=== PATIENT | female | born 1995 | race Caucasian/White ===

== ENCOUNTER 2016-05-21 14:46 | Emergency (ER) | payer BC ==
[~2016-05-21] VITALS: Ht 157.5 cm; Wt 65.7 kg
[~2016-05-21 14:46] MED LIST: ATEN50TA PO; BACL10TA PO; BUSP10TA3 PO; CITA20TA9 PO; FAMO20TA8 PO; MEDR150D4 IM; ONDA4TAB7 PO; PROC-14 PO
--- OUTSIDE RECORDS SUMMARY | 2016-05-21 14:50 | XMS REPORT | Referral Summary ---
Author Author [facility], Family Medicine Organization [facility] Address Unknown Phone Unavailable Care Team Providers Care Linotype Operator Name Role Phone Lizzette Otto Primary Care Physician [phone] Encounter Date(s): 03/30/16 - 03/30/16 [facility], [address] [place] [address]- Discharge Diagnosis: Depression with anxiety Discharge Diagnosis: Relationship problems Discharge Disposition: 01-Home or Self Care Attending Physician: Fatmata Mcqueen APRN Admitting Physician: Fatmata Mcqueen APRN Vital Signs Most recent to 1 oldest [Reference Range]: Temperature Tympanic 36.9 degC [36.6-38.1 degC] (03/30/16 8:30 AM) Peripheral Pulse 83 bpm Rate [60-100 bpm] (03/30/16 8:30 AM) Respiratory Rate 17 br/min [14-20 br/min] (03/30/16 8:30 AM) Blood Pressure 110/60 mmHg [90-140/60-90 mmHg] (03/30/16 8:30 AM) SpO2 98 % (03/30/16 8:30 AM) Problem List Condition Effective Dates Status Health Status Informant Acute serous otitis Active media(Confirmed) Chronic Active fatigue(Confirmed) Chronic Active headaches(Confirmed) EBV Active infection(Confirmed) Contraceptive Active management(Confirmed ) Enlarged Active thyroid(Confirmed) Anxiety and Active depression(Confirmed ) TMJ Active syndrome(Confirmed) Allergies, Adverse Reactions, Alerts Substance Reaction Severity Status Benadryl Active Compazine TMJ locking Active [place] Active Phenergan Active Medications atenolol 50 mg oral tablet See Instructions, TAKE ONE TABLET BY MOUTH DAILY, # 30 tabs, 3 Refill(s), eRx: [facility] #[id number] Start Date: 02/29/16 Status: Ordered busPIRone 15 mg oral tablet See Instructions, TAKE ONE TABLET BY MOUTH THREE TIMES A DAY, # 90 tabs, 3 Refill(s), Pharmacy: [facility] #[id number], TAKE ONE TABLET BY MOUTH THREE TIMES A DAY Start Date: 02/29/16 Status: Ordered citalopram 40 mg oral tablet See Instructions, TAKE ONE TABLET BY MOUTH DAILY, # 30 tabs, eRx: [facility] #[id number] Start Date: 03/30/16 Status: Ordered cyclobenzaprine 10 mg oral tablet 10 mg 1 tabs, Oral, TID, as needed for spasm, X 10 days, # 30 tabs, 0 Refill(s) , Pharmacy: [id number], 1 tabs Oral TID,x10 days,PRN:as needed for spasm Start Date: 03/21/16 Stop Date: 03/31/16 Status: Ordered Depo-Provera Contraceptive 150 mg/mL intramuscular suspension 150 mg 1 mL, IntraMuscular, q3mo, # 1 mL, 0 Refill(s), other reason (Rx) Start Date: 02/16/15 Status: Ordered diflunisal 500 mg oral tablet 500 mg 1 tabs, Oral, BID, # 20 tabs, 0 Refill(s), Pharmacy: [facility], 1 tabs Oral BID,x10 days Start Date: 03/21/16 Stop Date: 03/31/16 Status: Ordered famotidine 20 mg oral tablet See Instructions, TAKE TWO TABLETS BY MOUTH ONCE DAILY, # 60 tabs, eRx: [facility] Start Date: 03/16/16 Status: Ordered 1 1 caps, Oral, Daily, 0 Refill(s) Start Date: 12/15/15 Status: Ordered Results No data available for this section Immunizations Given and Recorded Vaccine Date Status Refusal Reason tetanus/diphth/pertuss (Tdap) adult/adol 07/20/11 Recorded diphtheria/pertussis, acel/tetanus ped 10/02/01 Given diphtheria/pertussis, acel/tetanus ped 11/11/97 Given diphtheria/pertussis, acel/tetanus ped 96 Given diphtheria/pertussis, acel/tetanus ped 96 Given diphtheria/pertussis, acel/tetanus ped 96 Given haemophilus b conjugate (HbOC) vaccine 11/11/97 Given hepatitis B pediatric vaccine 11/11/97 Given hepatitis B pediatric vaccine 96 Given hepatitis B pediatric vaccine 96 Given human papillomavirus vaccine 06/27/13 Given human papillomavirus vaccine 02/24/13 Given human papillomavirus vaccine 01/02/13 Given measles/mumps/rubella virus vaccine 10/02/01 Given measles/mumps/rubella virus vaccine 11/11/97 Given meningococcal conjugate vaccine 09/08/14 Given poliovirus vaccine, inactivated 10/02/01 Given poliovirus vaccine, inactivated 96 Given poliovirus vaccine, inactivated 96 Given poliovirus vaccine, inactivated 96 Given Procedures Procedure Date Related Diagnosis Body Site Tonsillectomy [place] teeth extracted Social History Social History Type Response Smoking Status Never smoker Assessment and Plan Extracted from: Title: Office Visit Note Author: Fatmata Mcqueen APRN Date: 03/30/16 Assessment/Plan Depression with anxiety 50 minute visit [id number] in counseling. Primary issues are frustration withworkandperhaps some communication issues with her fellow employees. 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 She has been angry and upset. She has not done any physical exercise and she knows that that's very helpful to herin releasing some anxiety frustration and anger. She will begin adaily work out after workbefore she goes home. She's been taking out her angeronher mother and boyfriendwhich she agrees is unacceptable. No medication changes will be made at this visit. She willbeginmaking these changes in her life and recheck in 2 weeks,sooner if she has problems. Ordered: Office Visit Level 5 Est 22035 Relationship problems She cannot control her father's unpredictable and irresponsible behavior. She willmove forwardto make plans anddo family activities without involvingher father since he frequently disappoints the familyby not participating when he says he will. I recommended some reading material but she does not like reading,preferring instead to watch movies. I will see if there are anyapplicableinstructional DVDswhich would be helpful to her. Ordered: Office Visit Level 5 Est 51432
--- OUTSIDE RECORDS SUMMARY | 2016-05-21 14:50 | XMS REPORT | Referral Summary ---
Author Author [facility], Family Medicine Organization [facility] Family [facility] Address Unknown Phone Unavailable Care Team Providers Care Systems Applications Programming Lead Name Role Phone Lizzette Otto Primary Care Physician [phone] Encounter Date(s): 04/20/16 - 04/20/16 [facility], Family [address] [place] [address] Discharge Disposition: 01-Home or Self Care Attending Physician: Fatmata Mcqueen APRN Admitting Physician: Fatmata Mcqueen APRN Vital Signs Most recent to 1 oldest [Reference Range]: Temperature Tympanic 36.3 degC [36.6-38.1 degC] *LOW* (04/20/16 4:03 PM) Peripheral Pulse 75 bpm Rate [60-100 bpm] (04/20/16 4:03 PM) Blood Pressure 112/61 mmHg [90-140/60-90 mmHg] (04/20/16 4:03 PM) SpO2 98 % (04/20/16 4:03 PM) Problem List Condition Effective Dates Status Health Status Informant Acute serous otitis Active media(Confirmed) Chronic Active fatigue(Confirmed) Chronic Active headaches(Confirmed) EBV Active infection(Confirmed) Contraceptive Active management(Confirmed ) Enlarged Active thyroid(Confirmed) Anxiety and Active depression(Confirmed ) TMJ Active syndrome(Confirmed) Allergies, Adverse Reactions, Alerts Substance Reaction Severity Status Benadryl Active Compazine TMJ locking Active [place] Active Phenergan Active Medications atenolol 50 mg oral tablet See Instructions, TAKE ONE TABLET BY MOUTH DAILY, # 30 tabs, 3 Refill(s), Pharmacy: [id number], TAKE ONE TABLET BY MOUTH DAILY Start Date: 04/20/16 Status: Ordered busPIRone 15 mg oral tablet See Instructions, TAKE ONE TABLET BY MOUTH THREE TIMES A DAY, # 90 tabs, 3 Refill(s), Pharmacy: [facility], TAKE ONE TABLET BY MOUTH THREE TIMES A DAY Start Date: 04/20/16 Status: Ordered citalopram 20 mg oral tablet See Instructions, TAKE ONE AND ONE HALF TABLETS DAILY, # 45 tabs, 3 Refill(s), Pharmacy: [facility], TAKE ONE AND ONE HALF TABLETS DAILY Start Date: 04/20/16 Status: Ordered Depo-Provera Contraceptive 150 mg/mL intramuscular suspension 150 mg 1 mL, IntraMuscular, q3mo, # 1 mL, 0 Refill(s), other reason (Rx) Start Date: 02/16/15 Status: Ordered diflunisal 500 mg oral tablet 500 mg 1 tabs, Oral, BID, # 20 tabs, 0 Refill(s), Pharmacy: [facility] [address], 1 tabs Oral BID,x10 days Start Date: 03/21/16 Stop Date: 03/31/16 Status: Ordered famotidine 20 mg oral tablet See Instructions, TAKE TWO TABLETS BY MOUTH ONCE DAILY, # 60 tabs, 3 Refill(s), Pharmacy: [facility] [address], TAKE TWO TABLETS BY MOUTH ONCE DAILY Start Date: 04/20/16 Status: Ordered 1 1 caps, Oral, Daily, 0 Refill(s) Start Date: 12/15/15 Status: Ordered Tri-Sprintec oral tablet 1 tabs, Oral, Daily, Refills from 04/20/16 thru 04/20/2017, # 28 tabs, 11 Refill(s ), Pharmacy: [facility] [address] Start Date: 04/20/16 Status: Ordered Results No data available for [...] Procedure Date Related Diagnosis Body Site Tonsillectomy [place] teeth extracted Social History Social History Type Response Smoking Status Never smoker Assessment and Plan No data available for this section
--- OUTSIDE RECORDS SUMMARY | 2016-05-21 14:50 | XMS REPORT | Continuity of Care Document ---
Author Author [facility] Organization [facility] Address Unknown Phone Unavailable Allergies Medications Problems Procedures Results Test Result Range HEP B SURF AB (EMP) - 12/27/15 13:52 HEP B SURFACE AB (EMP) <3.1 Immunity> 9.9 VARICELLA ZOSTER IGG PRE EMP - 12/27/15 13:52 VARICELLA ZOSTER IGG PRE EMP 1186 Immune >165 Encounters ACCT No. Visit Date/Time Discharge Status Pt. Type Provider Facility Loc./Unit Complaint [id number] 05/17/2013 11:21:00 05/17/2013 23 :59:59 CLS Outpatient [id number] 05/09/2013 16:00:00 05/09/2013 23 :59:59 CLS Outpatient [id number] 04/25/2013 15:54:00 04/25/2013 23 :59:59 CLS Outpatient [id number] 04/21/2013 10:50:00 04/21/2013 23 :59:59 CLS Outpatient [id number] 04/11/2013 09:36:00 04/11/2013 23 :59:59 CLS Outpatient [id number] 03/20/2013 16:14:00 03/20/2013 23 :59:59 CLS Outpatient
--- OUTSIDE RECORDS SUMMARY | 2016-05-21 14:51 | XMS REPORT | Referral Summary ---
Author Author [facility], Family Medicine Organization [facility] Family [facility] Address Unknown Phone Unavailable Care Team Providers Care Claims Adjuster Supervisor Name Role Phone Lizzette Otto Primary Care Physician [phone] Encounter Date(s): 12/30/15 - 12/30/15 [facility] [address] [place] [address] Discharge Diagnosis: Acute lower UTI Discharge Disposition: 01-Home or Self Care Attending Physician: Gretchen Schroeder PA-C Admitting Physician: Gretchen Schroeder PA-C Vital Signs Most recent to 1 oldest [Reference Range]: Temperature Tympanic 36.4 degC [36.6-38.1 degC] *LOW* (12/30/15 2:52 PM) Peripheral Pulse 64 bpm Rate [60-100 bpm] (12/30/15 2:52 PM) Respiratory Rate 18 br/min [14-20 br/min] (12/30/15 2:52 PM) Blood Pressure 115/78 mmHg [90-140/60-90 mmHg] (12/30/15 2:52 PM) SpO2 97 % (12/30/15 2:52 PM) Problem List Condition Effective Dates Status Health Status Informant Acute serous otitis Active media(Confirmed) Chronic Active fatigue(Confirmed) Chronic Active headaches(Confirmed) EBV Active infection(Confirmed) Contraceptive Active management(Confirmed ) Enlarged Active thyroid(Confirmed) Anxiety and Active depression(Confirmed ) TMJ Active syndrome(Confirmed) Allergies, Adverse Reactions, Alerts Substance Reaction Severity Status Benadryl Active Compazine TMJ locking Active [place] Active Phenergan Active Medications atenolol 50 mg oral tablet See Instructions, TAKE ONE TABLET BY MOUTH DAILY DUE FOR APPOINTMENT, # 30 tabs, eRx: [facility] #[id number], TAKE ONE TABLET BY MOUTH DAILY DUE FOR APPOINTMENT Start Date: 12/22/15 Status: Ordered atenolol 50 mg oral tablet See Instructions, TAKE ONE TABLET BY MOUTH DAILY, # 30 tabs, 0 Refill(s), Pharmacy: [facility] #[id number], NEEDS APPT WITH DR. OTTO FOR FURTHER REFILLS, TAKE ONE TABLET BY MOUTH DAILY Start Date: 11/09/15 Status: Ordered Bactrim DS 800 mg-160 mg oral tablet 1 tabs, Oral, BID, X 7 days, # 14 tabs, 0 Refill(s), Pharmacy: [facility] #[id number] Start Date: 12/30/15 Stop Date: 01/06/16 Status: Ordered busPIRone 15 mg oral tablet See Instructions, TAKE ONE TABLET BY MOUTH THREE TIMES A DAY MUST CALL MD FOR APPOINTMENT, # 30 tabs, eRx: [facility] #[id number], TAKE ONE TABLET BY MOUTH THREE TIMES A DAY MUST CALL MD FOR APPOINTMENT Start Date: 12/23/15 Status: Ordered citalopram 40 mg oral tablet 40 mg 1 tabs, Oral, Daily, # 30 tabs, 0 Refill(s), Pharmacy: [facility] # [id number], 1 tabs Oral Daily Start Date: 12/21/15 Status: Ordered Depo-Provera Contraceptive 150 mg/mL intramuscular suspension 150 mg 1 mL, IntraMuscular, q3mo, # 1 mL, 0 Refill(s), other reason (Rx) Start Date: 02/16/15 Status: Ordered famotidine 20 mg oral tablet 40 mg 2 tabs, Oral, Daily, 0 Refill(s) Start Date: 12/01/15 Status: Ordered 1 1 caps, Oral, Daily, 0 Refill(s) Start Date: 12/15/15 Status: Ordered Wellbutrin XL 150 mg/24 hours oral tablet, extended release 150 mg 1 tabs, Oral, q24hr, # 30 tabs, 1 Refill(s), Pharmacy: [facility] # [id number], 1 tabs Oral q24hr Start Date: 12/15/15 Status: Ordered Results Urinalysis Most recent to 1 oldest [Reference Range]: UA Color [place] *ABN* (12/30/15 2:55 PM) UA Appear Clear (12/30/15 2:55 PM) UA pH [5.0-8.0] 6.5 (12/30/15 2:55 PM) UA Leuk Est Negative [Negative] (12/30/15 2:55 PM) UA Nitrite - 1 [Negative] (12/30/15 2:55 PM) UA Protein - 2 [Negative] (12/30/15 2:55 PM) UA Glucose - 3 [Negative] (12/30/15 2:55 PM) UA Ketones - 4 [Negative] (12/30/15 2:55 PM) UA Urobilinogen - 5 [<=1.0] (12/30/15 2:55 PM) UA Bili [Negative] Negative (12/30/15 2:55 PM) UA Blood [Negative] Negative (12/30/15 2:55 PM) UA Spec Grav 1.020 [1.003-1.030] (12/30/15 2:55 PM) Type Cl Catch (12/30/15 2:55 PM) UA WBC [0-4] 20-50 *ABN* (12/30/15 2:55 PM) UA RBC [0-2] 5-10 *ABN* (12/30/15 2:55 PM) Epithelial Cells 0-2 (12/30/15 2:55 PM) UA Bacteria Moderate *ABN* (12/30/15 2:55 PM) UA Mucous Present (12/30/15 2:55 PM) 1Result Comment: This component of the urinalysis cannot be performed due to the presence of dye stain which interferes with the testing procedure. 2Result Comment: This component of the urinalysis cannot be performed due to the presence of dye stain which interferes with the testing procedure. 3Result Comment: This component of the urinalysis cannot be performed due to the presence of dye stain which interferes with the testing procedure. 4Result Comment: This component of the urinalysis cannot be performed due to the presence of dye stain which interferes with the testing procedure. 5Result Comment: This component of the urinalysis cannot be performed due to the presence of dye stain which interferes with the testing procedure. Immunizations Vaccine Date Refusal Reason tetanus/diphth/pertuss (Tdap) adult/adol 07/20/11 diphtheria/pertussis, acel/tetanus ped 10/02/01 diphtheria/pertussis, acel/tetanus ped 11/11/97 diphtheria/pertussis, acel/tetanus ped 96 diphtheria/pertussis, acel/tetanus ped 96 diphtheria/pertussis, acel/tetanus ped 96 haemophilus b conjugate (HbOC) vaccine 11/11/97 hepatitis B pediatric vaccine 11/11/97 hepatitis B pediatric vaccine 96 hepatitis B pediatric vaccine 96 human papillomavirus vaccine 06/27/13 human papillomavirus vaccine 02/24/13 human papillomavirus vaccine 01/02/13 measles/mumps/rubella virus vaccine 10/02/01 measles/mumps/rubella virus vaccine 11/11/97 meningococcal conjugate vaccine 09/08/14 poliovirus vaccine, inactivated 10/02/01 poliovirus vaccine, inactivated 96 poliovirus vaccine, inactivated 96 poliovirus vaccine, inactivated 96 Procedures Procedure Date Related Diagnosis Body Site Tonsillectomy [place] teeth extracted Social History Social History Type Response Smoking Status Never smoker Assessment and Plan Extracted from: Title: Office Visit Note- UTI Author: Gretchen Schroeder PA-C Date: 12/29 Assessment/Plan Acute lower UTI Dipstick was unreadable d/t orange color from AZO. The microscopy showed WBC's. Will treat with Bactrim x 1 week. Pt advised to push fluids. Stop AZO for now. RTC if not improving. Ordered: sulfamethoxazole-trimethoprim, 1 tabs, Oral, BID, X 7 days, # 14 tabs, 0 Refill (s), Pharmacy: [facility] #[id number] Office Visit Level 3 Est 59372 Urination frequency See UTI above. Ordered: Office Visit Level 3 Est 90934
--- OUTSIDE RECORDS SUMMARY | 2016-05-21 14:51 | XMS REPORT | Referral Summary ---
Author Author [facility], Family Medicine Organization [facility] Address Unknown Phone Unavailable Care Team Providers Care Paid Search Marketing Analyst Name Role Phone Lizzette Otto Primary Care Physician [phone] Encounter VC Date(s): 11/29/15 - 11/29/15 [facility] [address] [place] [address] Discharge Diagnosis: Nausea without vomiting Discharge Diagnosis: Diffuse abdominal pain Discharge Diagnosis: Constipation Discharge Disposition: 01-Home or Self Care Attending Physician: Gretchen Schroeder PA-C Admitting Physician: Gretchen Schroeder PA-C Vital Signs Most recent to 1 oldest [Reference Range]: Temperature Tympanic 37 degC [36.6-38.1 degC] (11/29/15 10:52 AM) Peripheral Pulse 68 bpm Rate [60-100 bpm] (11/29/15 10:52 AM) Respiratory Rate 16 br/min [14-20 br/min] (11/29/15 10:52 AM) Blood Pressure 108/62 mmHg [90-140/60-90 mmHg] (11/29/15 10:52 AM) SpO2 98 % (11/29/15 10:52 AM) Problem List Condition Effective Dates Status Health Status Informant Acute serous otitis Active media(Confirmed) Chronic Active fatigue(Confirmed) Chronic Active headaches(Confirmed) EBV Active infection(Confirmed) Contraceptive Active management(Confirmed ) Enlarged Active thyroid(Confirmed) Anxiety and Active depression(Confirmed ) TMJ Active syndrome(Confirmed) Allergies, Adverse Reactions, Alerts Substance Reaction Severity Status Benadryl Active [place] Active Phenergan Active Medications atenolol 50 mg oral tablet See Instructions, TAKE ONE TABLET BY MOUTH DAILY, # 30 tabs, 0 Refill(s), Pharmacy: [facility] #[id number], NEEDS APPT WITH DR. OTTO FOR FURTHER REFILLS, TAKE ONE TABLET BY MOUTH DAILY Start Date: 11/09/15 Status: Ordered busPIRone 15 mg oral tablet See Instructions, TAKE ONE TABLET BY MOUTH THREE TIMES A DAY Pt needs med check with PCP, # 30 tabs, 0 Refill(s), Pharmacy: [facility] #[id number], TAKE ONE TABLET BY MOUTH THREE TIMES A DAY; Pt needs med check with PCP Start Date: 11/22/15 Status: Ordered citalopram 20 mg oral tablet See Instructions, TAKE ONE AND ONE HALF TABLETS BY MOUTH ONCE DAILY, # 45 tabs, 3 Refill(s), eRx: [facility] #[id number], TAKE ONE AND ONE HALF TABLETS BY MOUTH ONCE DAILY Start Date: 06/11/15 Status: Ordered citalopram 20 mg oral tablet See Instructions, TAKE ONE AND ONE HALF TABLETS BY MOUTH ONCE DAILY, # 45 tabs, 2 Refill(s), Pharmacy: [facility] #[id number], TAKE ONE AND ONE HALF TABLETS BY MOUTH ONCE DAILY Start Date: 11/08/15 Status: Ordered clotrimazole-betamethasone 1%-0.05% topical cream 1 migel, Topical, BID, 0 Refill(s) Start Date: 10/04/15 Status: Ordered Depo-Provera Contraceptive 150 mg/mL intramuscular suspension 150 mg 1 mL, IntraMuscular, q3mo, # 1 mL, 0 Refill(s), other reason (Rx) Start Date: 02/16/15 Status: Ordered Zofran ODT 8 mg oral tablet, disintegrating 8 mg 1 tabs, Oral, q8hr, as needed for nausea/vomiting, # 10 tabs, 0 Refill(s), Pharmacy: [facility] #[id number], 1 tabs Oral q8hr,PRN:as needed for nausea/ vomiting Start Date: 06/22/15 Status: Ordered Results No data available for this section Immunizations Vaccine Date Refusal Reason tetanus/diphth/pertuss (Tdap) [...] Procedure Date Related Diagnosis Body Site Tonsillectomy [place] teeth extracted Social History Social History Type Response Smoking Status Never smoker Assessment and Plan Extracted from: Title: Office Visit Note- ED f/u, Author: Gretchen Schroeder PA-C Date: 11/29/15 abd pain Assessment/Plan Constipation I spent about 25 minutes discussing with the pt about the labs and x-ray from her EDvisit. I do think kelsea would benefit from taking a laxative ratherthan a stool softener. I discussed with her how these medication differ. She refuses to take a laxative. She states "I know what those do to people", and when asked to clarify, she states "it gives you diarrhea, which is worse than my pain now".I recommended that she could try Miralax, but this will take several days to have good effects. Since she apparently wants this resolved now, I recommended that she take Magnesium Citrate. She refuses. She "has tried everything" already.D/w her to make sure she is drinking plenty of fluids, as her UA showed that she was a little dry. Ordered: Office Visit Level 4 Est 82873 Diffuse abdominal pain She demands a CTtoday. I d/w her that I would rather her first try a laxative to empty out hercolon to see if this helps. She tells me that she doesn't want to, and that she wouldrather know what's going on and do a CT. I refused CT today. I asked her what she thought a CT would show us, and she immediately started crying and stated "I don't know, I just want the pain to go away". D/w her that it is not her appendix sinceher WBC is normal, she is eating normally, and she has no pain to McBurney's point. She has no signs of an acute abdomen. D/w her that a CT will expose her to a lot of unnecessary radiation, and I"m not willing to put her through that at this time. I think most of her abdominal pain is d/t her constipation, and also psychological. Again, advised trying a laxative. I also offered to provide a work note, but she states "I have to work the next 6 days", and declined a note. I d/w her that if she wants, she can try the laxative, and let us know if her pain is not better after a few days of having a decent BM. D/w her that laxatives can cause some cramping afterwards, which would be normal. Ordered: Office Visit Level 4 Est 93649 Nausea without vomiting Has Zofran from ED, however, I did d/w pt that this can cause worsening constipation as well.She is eating fine. Continue with bland diet for now. Ordered: Office Visit Level 4 Est 21858
--- OUTSIDE RECORDS SUMMARY | 2016-05-21 14:51 | XMS REPORT | Continuity of Care Document ---
Author Author [facility] Organization [facility] Address Unknown Phone Unavailable Support Name Relationship Address Phone MACO TEMPLE MD Caregiver [address] [place] [address] Unavailable RICARDO HINOJOSA MD Caregiver [address] [place] [address] Unavailable DAIANA HAMILTON Next Of Kin [place], [place] [id number] Insurance Providers Guarantor Rehana Hamilton Address [address] [place] [address] Email DENIED/NO TO PT PORTAL Payer [facility] Policy Number [id number] Subscriber's Name Rehana Relationship 18 Self Group Number [id number] Chief Complaint and Reason for Visit Chief Complaint General Reason for Visit Muscle spasms of neck Problems Active Problems Medical Problem Onset Date Status GERD (gastroesophageal reflux disease) Unknown Acute Migraine equivalent Unknown Acute UTI (urinary tract infection) Unknown Acute Past Problems Medical Problem Onset Date Abdominal pain Unknown Constipation Unknown Epigastric abdominal pain Unknown Gastritis Unknown Mesenteric adenitis Unknown Migraine headache Unknown Muscle spasms of neck Unknown Right upper quadrant abdominal pain Unknown Yeast infection involving the vagina and surrounding area Unknown Medications Current Home Medications Medication Dose Units Route Directions Days Qty Instructions Start Date Atenolol 50 Mg Tablet 50 Mg Oral Daily 11/27/15 Baclofen 10 Mg Tablet 1 Tab Oral Three Times A Day 10 Days 30 Tablet 12/02/15 Buspirone Hcl 10 Mg Tablet 15 Mg Oral Three Times A Day 09/03/15 Citalopram Hydrobromide (Citalopram Hbr) 20 Mg Tablet 30 Mg Oral Daily 01/11/15 Famotidine 20 Mg Tablet 20 Mg Oral Daily 12/02/15 Medroxyprogesterone Acet (Depo-Provera) 150 Mg/Ml Disp.syrin 1 Dose Intramusc [id number] 12/28/11 Ondansetron (Zofran Odt) 4 Mg Tab.rapdis 4 Mg Oral Q6h/0300,0900,1500,2100 for Nausea 5 Tablet Oral disintegrating tablet 11/27/15 Prochlorperazine Maleate (Compazine) 10 Mg Tablet 10 Mg Oral Four Times Daily 30 Tablet 11/30/15 Past Home Medications Medication Directions Ordered Status Loratadine (Alavert) 10 Mg Tablet, 10 Mg Oral Daily 01/02/10 Discontinued Social History Social History Problem Response Recorded Date/Time Onset Date Status Hx Substance Use No 12/02/2015 8:28pm Not Applicable Not Applicable Hx Alcohol Use No 12/02/2015 8:28pm Not Applicable Not Applicable Has the pt used tobacco in the last 12 months No 06/18/2015 9:27am Not Applicable Not Applicable Tobacco Usage none 09/13/2014 3:59pm Not Applicable Not Applicable Query Response Start Date Stop Date Smoking Status Never smoker Hospital Discharge Instructions No hospital discharge instructions. Plan of Care Discharge Date 12/02/15 8:25pm Disposition 01 DISCHARGED HOME, SELF-CARE Condition at Discharge Improved Instructions/Education Provided DI for Muscle Spasm Prescriptions See Medication Section Referrals MACO TEMPLE MD Order Date: 1 Week Address: [address] [place] [address] [place] [phone] Note: Additional Instructions/Education Take the baclofen as prescribed to help with your symptoms. Follow up with your doctor in 7-10 days. Care Plan and Goals Physician Care Plan Problem: Neck muscle spasm Goal: Follow up with primary care provider Instructions: Take medications and follow care plan as discussed/written Functional Status No functional status results. Allergies, Adverse Reactions, Alerts Allergen Type Severity Reaction Status Last Updated Hydrocodone Allergy Unknown Active 12/02/15 Promethazine Allergy Unknown Active 12/02/15 Diphenhydramine Adverse Reaction Unknown HALLUCINATIONS Active 12/02/15 Immunizations Query Response on File Recorded Date/Time Hx Influenza Vaccination No 06/18/15 9:27am Hx Pneumococcal Vaccination No 06/18/15 9:27am Hx Influenza Vaccination No 06/18/15 9:27am Influenza Vaccine Hx CURRENT PER PT STATEMENT 12/02/15 8:28pm Vital Signs Acute Vital Signs Vital Response Date/Time Temperature (Fahrenheit) 98.0 deg F (96.8 - 99.1) 12/02/2015 8:25pm Temperature (Calculated Celsius) 36.02054 degrees C (36.0 - 37.3) 12/02/2015 8:25pm Pulse Rate (adult) 80 bpm (60 - 100) 12/02/2015 8:25pm Respiratory Rate 16 breaths/min (10 - 20) 12/02/2015 8:25pm O2 Sat by Pulse Oximetry 98 % (90 - 100) 12/02/2015 8:25pm Blood Pressure 125/65 mm Hg 12/02/2015 8:25pm Blood Pressure 125/65 mm Hg 12/02/2015 8:25pm Height (Feet) 5 feet 12/02/2015 5:44pm Height (Inches) 3.00 inches 12/02/2015 5:44pm Weight (Kilograms) 63.630 kg 12/02/2015 5:44pm Body Mass Index (BMI) 24.0 12/02/2015 5:44pm Results Laboratory Results Test Name Result Units Flags Reference Collection Date/Time Result Date/ Time Comments Urine WBC 1-3 /HPF 0-5 09/03/2015 8:55pm 09/03/2015 9:06pm Urine RBC 0-1 /HPF 0-3 09/03/2015 8:55pm 09/03/2015 9:06pm Urine Squamous Epithelial Cells 0-5 09/03/2015 8:55pm 09/03/2015 9: 06pm Urine Bacteria TRACE H NEGATIVE 09/03/2015 8:55pm 09/03/2015 9:06pm Urine Culture Indicated CULT NOT INDICATED 09/03/2015 8:55pm 2015 9:06pm N. gonorrhoeae DNA Specimen Source CERVICAL/VAGINAL 10/03/2015 6: 46am 10/03/2015 8:53am White Blood Count 6.7 T/MM3 4.5-11.0 11/27/2015 4:41pm 11/27/2015 4: 46pm Red Blood Count 4.88 M/MM3 4.00-5.20 11/27/2015 4:41pm 11/27/2015 4: 46pm Hemoglobin 14.6 GM/DL 12-16 11/27/2015 4:41pm 11/27/2015 4:46pm Hematocrit 42.0 % 36-46 11/27/2015 4:41pm 11/27/2015 4:46pm Mean Corpuscular Volume 86.1 UM3 80-100 11/27/2015 4:41pm 11/27/2015 4: 46pm Mean Corpuscular Hemoglobin 29.9 UUG 26-34 11/27/2015 4:41pm 2015 4:46pm Mean Corpuscular Hemoglobin Concent 34.8 GM/DL 31-37 11/27/2015 4:41pm 11/27/2015 4:46pm RDW Standard Deviation 37.4 FL 36.9-50.2 11/27/2015 4:41pm 11/27/2015 4 :46pm Platelet Count 243 T/MM3 130-400 11/27/2015 4:41pm 11/27/2015 4:46pm Mean Platelet Volume 9.7 UM3 9.4-12.4 11/27/2015 4:41pm 11/27/2015 4: 46pm Neutrophils (%) (Auto) 55.5 % 33-66 11/27/2015 4:41pm 11/27/2015 4: 46pm Lymphocytes (%) (Auto) 33.0 % 23-45 11/27/2015 4:41pm 11/27/2015 4: 46pm Monocytes (%) (Auto) 9.6 % H 0-9.0 11/27/2015 4:41pm 11/27/2015 4:46pm Eosinophils (%) (Auto) 1.1 % 0-4 11/27/2015 4:41pm 11/27/2015 4:46pm Basophils (%) (Auto) 0.6 % 0-2 11/27/2015 4:41pm 11/27/2015 4:46pm Immature Granulocyte % (Auto) 0.2 % 0.0-0.5 11/27/2015 4:41pm 2015 4:46pm Absolute Neutrophils (auto) 3.7 T/MM3 1.8-7.7 11/27/2015 4:41pm 2015 4:46pm Absolute Lymphocytes (auto) 2.2 T/MM3 1-4.8 11/27/2015 4:41pm 2015 4:46pm Absolute Monocytes (auto) 0.6 T/MM3 0-0.8 11/27/2015 4:41pm 11/27/2015 4:46pm Absolute Eosinophils (auto) 0.1 T/MM3 0-0.5 11/27/2015 4:41pm 2015 4:46pm Absolute Basophils (auto) 0.0 T/MM3 0-0.2 11/27/2015 4:41pm 11/27/2015 4:46pm Absolute Immature Granulocyte (auto 0.01 T/MM3 0.00-0.03 11/27/2015 4: 41pm 11/27/2015 4:46pm Icterus Index < 2 0-7 11/27/2015 4:41pm 11/27/2015 4:57pm Chemistry Specimen Hemolysis < 15 0-25 11/27/2015 4:41pm 11/27/2015 4 :57pm 0-25: Specimen Exhibited No Hemolysis. Turbidity < 20 0-20 11/27/2015 4:41pm 11/27/2015 4:57pm Sodium Level 141 MEQ/L 134-144 11/27/2015 4:41pm 11/27/2015 4:57pm Potassium Level 4.1 MEQ/L 3.6-5 11/27/2015 4:41pm 11/27/2015 4:57pm Chloride Level 106 MEQ/L 98-107 11/27/2015 4:41pm 11/27/2015 4:57pm Carbon Dioxide Level 26 MEQ/L 22-30 11/27/2015 4:41pm 11/27/2015 4: 57pm Anion Gap 9 MEQ/L 5-15 11/27/2015 4:41pm 11/27/2015 4:57pm Blood Urea Nitrogen 14.0 MG/DL 7-17 11/27/2015 4:41pm 11/27/2015 4: 57pm Creatinine 0.9 MG/DL 0.7-1.2 11/27/2015 4:41pm 11/27/2015 4:57pm BUN/Creatinine Ratio 16 RATIO 6-26 11/27/2015 4:41pm 11/27/2015 4:57pm Glomerular Filtration Rate Calc 81 11/27/2015 4:41pm 11/27/2015 4: 57pm Glucose Level 93 MG/DL 65-110 11/27/2015 4:41pm 11/27/2015 4:57pm Calculated Osmolality 272 MOSM/KG 261-280 11/27/2015 4:41pm 11/27/2015 4:57pm Calcium Level 9.6 MG/DL 8.4-10.2 11/27/2015 4:41pm 11/27/2015 4:57pm Total Bilirubin 0.60 MG/DL 0.20-1.30 11/27/2015 4:41pm 11/27/2015 4: 57pm Alkaline Phosphatase 48 U/L 38-126 11/27/2015 4:41pm 11/27/2015 4:57pm Total Protein 7.6 G/DL 6.3-8.2 11/27/2015 4:41pm 11/27/2015 4:57pm Albumin 4.3 G/DL 3.5-5.0 11/27/2015 4:41pm 11/27/2015 4:57pm Globulin 3.3 G/DL 2.4-3.6 11/27/2015 4:41pm 11/27/2015 4:57pm Albumin/Globulin Ratio 1.3 RATIO 1.1-2.2 11/27/2015 4:41pm 11/27/2015 4 :57pm Aspartate Amino Transf (AST/SGOT) 23 U/L 14-36 11/27/2015 4:41pm 2015 4:57pm Alanine Aminotransferase (ALT/SGPT) 40 U/L 9-52 11/27/2015 4:41pm 11/26 4:57pm Lipase 66 U/L 23-300 11/27/2015 4:41pm 11/27/2015 4:57pm Urine Collection Type CLEANCATCH-MIDSTREAM 11/27/2015 4:10pm 2015 4:17pm Urine Color YELLOW YELLOW 11/27/2015 4:10pm 11/27/2015 4:17pm Urine Turbidity CLEAR CLEAR 11/27/2015 4:10pm 11/27/2015 4:17pm Urine Specific [place] >=1.030 H 1.015-1.025 11/27/2015 4:10pm 2015 4:17pm Urine pH 6.0 5.0-8.0 11/27/2015 4:10pm 11/27/2015 4:17pm Urine Leukocyte Esterase NEGATIVE NEGATIVE 11/27/2015 4:10pm 2015 4:17pm Urine Nitrite NEGATIVE NEGATIVE 11/27/2015 4:10pm 11/27/2015 4:17pm Urine Protein NEGATIVE NEGATIVE 11/27/2015 4:10pm 11/27/2015 4:17pm Urine Glucose (UA) NEGATIVE NEGATIVE 11/27/2015 4:10pm 11/27/2015 4: 17pm Urine Ketones NEGATIVE NEGATIVE 11/27/2015 4:10pm 11/27/2015 4:17pm Urine Urobilinogen 0.2 EU/DL NORMAL 11/27/2015 4:10pm 11/27/2015 4: 17pm Urine Bilirubin NEGATIVE NEGATIVE 11/27/2015 4:10pm 11/27/2015 4: 17pm Urine Blood TRACE-INTACT A NEGATIVE 11/27/2015 4:10pm 11/27/2015 4: 17pm Urinalysis Comment MICROSCOPIC NOT IND. 11/27/2015 4:10pm 2015 4:17pm Procedures Procedure Status Date Provider(s) CT ABD & PELVIS W/O CONTRAST Completed 09/03/15 METABOLIC PANEL TOTAL CA Completed 09/03/15 URINALYSIS AUTO W/SCOPE Completed 09/03/15 URINE TEST Completed 09/03/15 COMPLETE CBC W/AUTO DIFF WBC Completed 09/03/15 HYDRATE IV INFUSION ADD-ON Completed 09/03/15 HYDRATE IV INFUSION ADD-ON Completed 09/03/15 THER/PROPH/DIAG INJ IV PUSH Completed 09/03/15 EMERGENCY DEPT VISIT Completed 09/03/15 227256"INJECTION, KETOROLAC TROMETHAMINE, PER 15 MG" Completed 09/03/15 193799"INFUSION, NORMAL SALINE SOLUTION , 1000 CC" Completed 09/03/15 URINALYSIS AUTO W/O SCOPE Completed 10/03/15 URINE TEST Completed 10/03/15 CULTURE OTHR SPECIMN AEROBIC Completed 10/03/15 SMEAR GRAM STAIN Completed 10/03/15 SMEAR WET [place] SALINE/INK Completed 10/03/15 TISSUE EXAM FOR FUNGI Completed 10/03/15 CHYLMD TRACH DNA AMP PROBE Completed 10/03/15 N.GONORRHOEAE DNA AMP PROB Completed 10/03/15 EMERGENCY DEPT VISIT Completed 10/03/15 ROUTINE VENIPUNCTURE Completed 11/27/15 X-RAY EXAM OF ABDOMEN Completed 11/27/15 COMPREHEN METABOLIC PANEL Completed 11/27/15 URINALYSIS AUTO W/O SCOPE Completed 11/27/15 URINE TEST Completed 11/27/15 ASSAY OF LIPASE Completed 11/27/15 COMPLETE CBC W/AUTO DIFF WBC Completed 11/27/15 HYDRATE IV INFUSION ADD-ON Completed 11/27/15 THER/PROPH/DIAG INJ IV PUSH Completed 11/27/15 TX/PRO/DX INJ NEW DRUG ADDON Completed 11/27/15 TX/PRO/DX INJ NEW DRUG ADDON Completed 11/27/15 EMERGENCY DEPT VISIT Completed 11/27/15 246408"INJECTION, HYDROMORPHONE, UP TO 4 MG" Completed 11/27/15 250411"INJECTION, ONDANSETRON HYDROCHLORIDE, PER 1 MG" Completed 11/27/15333968"INJECTION, FENTANYL CITRATE, 0.1 MG" Completed 11/27/15695940"INFUSION, NORMAL SALINE SOLUTION , 1000 CC" Completed 11/27/15 Compound Drug, Not Otherwise Classified Completed 11/27/15 Encounters Encounter Location Arrival/Admit Date Discharge/Depart Date Attending Provider Departed Emergency Room [facility] 12/02/15 5:04pm 12/02/15 8: 25pm RICARDO HINOJOSA MD Departed Emergency Room [facility] 11/30/15 5:57pm 11/30/15 8: 30pm SHWETA GONZALES MD Departed Emergency Room [facility] 11/27/15 3:33pm 11/27/15 6: 28pm CRISTINO ASENCIO MD Departed Emergency Room [facility] 10/03/15 6:08am 10/03/15 7: 50am CRISTINO ASENCIO MD Departed Emergency Room [facility] 09/03/15 8:14pm 09/03/15 11: 06pm SHWETA GONZALES MD Recent Diagnosis
--- OUTSIDE RECORDS SUMMARY | 2016-05-21 14:51 | XMS REPORT | Referral Summary ---
Author Author [facility] Organization [facility] Address Unknown Phone Unavailable Care Team Providers Care Web Programmer Name Role Phone Lizzette Otto Primary Care Physician [phone] Encounter Date(s): 01/27/16 - 01/27/16 [facility], [address] [place] [address]- Discharge Diagnosis: Common cold Discharge Diagnosis: Encounter for contraceptive management Discharge Disposition: 01-Home or Self Care Attending Physician: Fatmata Mcqueen APRN Admitting Physician: Fatmata Mcqueen APRN Vital Signs Most recent to 1 oldest [Reference Range]: Temperature Tympanic 37.5 degC [36.6-38.1 degC] (01/27/16 1:50 PM) Peripheral Pulse 112 bpm Rate [60-100 bpm] *HI* (01/27/16 1:50 PM) Blood Pressure 115/62 mmHg [90-140/60-90 mmHg] (01/27/16 1:50 PM) SpO2 96 % (01/27/16 1:50 PM) Problem List Condition Effective Dates Status Health Status Informant Acute serous otitis Active media(Confirmed) Chronic Active fatigue(Confirmed) Chronic Active headaches(Confirmed) EBV Active infection(Confirmed) Contraceptive Active management(Confirmed ) Enlarged Active thyroid(Confirmed) Anxiety and Active depression(Confirmed ) TMJ Active syndrome(Confirmed) Allergies, Adverse Reactions, Alerts Substance Reaction Severity Status Benadryl Active Compazine TMJ locking Active [place] Active Phenergan Active Medications atenolol 50 mg oral tablet See Instructions, TAKE ONE TABLET BY MOUTH DAILY DUE FOR APPOINTMENT, # 30 tabs, eRx: [facility] #[id number], TAKE ONE TABLET BY MOUTH DAILY DUE FOR APPOINTMENT Start Date: 12/22/15 Status: Ordered busPIRone 15 mg oral tablet 15 mg 1 tabs, Oral, TID, # 90 tabs, 0 Refill(s), Pharmacy: [facility] # [id number], 1 tabs Oral TID Start Date: 12/31/15 Status: Ordered citalopram 40 mg oral tablet 40 mg 1 tabs, Oral, Daily, # 30 tabs, 0 Refill(s), Pharmacy: [facility] # [id number], 1 tabs Oral Daily Start Date: 12/21/15 Status: Ordered Depo-Provera Contraceptive 150 mg/mL intramuscular suspension 150 mg 1 mL, IntraMuscular, q3mo, # 1 mL, 0 Refill(s), other reason (Rx) Start Date: 02/16/15 Status: Ordered famotidine 20 mg oral tablet 40 mg 2 tabs, Oral, Daily, # 60 tabs, 1 Refill(s), Pharmacy: [id number], 2 tabs Oral Daily Start Date: 01/11/16 Status: Ordered 1 1 caps, Oral, Daily, 0 Refill(s) Start Date: 12/15/15 Status: Ordered Wellbutrin XL 150 mg/24 hours oral tablet, extended release 150 mg 1 tabs, Oral, q24hr, # 30 tabs, 1 Refill(s), Pharmacy: [facility] # [id number], 1 tabs Oral q24hr Start Date: 12/15/15 Status: Ordered Results Chemistry Most recent to 1 oldest [Reference Range]: U Beta hCG Ql Negative (01/27/16 2:26 PM) Immunizations Vaccine Date Refusal Reason tetanus/diphth/pertuss (Tdap) [...] Procedure Date Related Diagnosis Body Site Tonsillectomy [place] teeth extracted Social History Social History Type Response Smoking Status Never smoker Assessment and Plan Extracted from: Title: Office Visit Note Author: Fatmata Mcqueen APRN Date: 01/27/16 Assessment/Plan Common cold Mucinex for congestion. Drink plenty of fluids. Tylenol for aches andfever. Call if worsening symptoms Encounter for contraceptive management Late for Depo-Provera. Will obtain urine test if negative will proceed with Depo-Provera injection 150 mg IM. test was negativeDepo-Provera was given in theleft upper outer quadrant of theleft buttocks. Return in 3 monthsfor recheck sooner if problems Screening Await test.
--- OUTSIDE RECORDS SUMMARY | 2016-05-21 14:51 | XMS REPORT ---
Author Author GENERATED, SYSTEM Organization Unknown Address Unknown Phone Unavailable Care Team Providers Care Financial Foundations Associate Name Role Phone PP Unavailable Reason For Visit Chief Complaint PRE EMPLOYMENT Social History Functional Status Vital Signs Results Problems Encounter Diagnosis No relevant problems exist. Encounters Encounter Diagnosis No relevant problems exist. Plan of Care Procedures No relevant procedures performed. Immunizations No immunizations administered or ordered. Hospital Course Hospital Discharge Instructions Allergies, Adverse Reactions, Alerts * Latex Allergy has not been assessed. * IV Contrast Allergy has not been assessed. Medication Medication reconciliation has not been performed.
--- OUTSIDE RECORDS SUMMARY | 2016-05-21 14:52 | XMS REPORT | Referral Summary ---
Author Author [facility] Organization [facility] Address Unknown Phone Unavailable Care Team Providers Care Assistant Professor Of Art Name Role Phone Lizzette Otto Primary Care Physician [phone] Encounter VC Date(s): 12/15/15 - 12/15/15 [facility] [address] [place] [address]- Discharge Diagnosis: Anxiety and depression Discharge Diagnosis: Chronic headaches Discharge Diagnosis: Difficulty controlling anger Discharge Disposition: 01-Home or Self Care Attending Physician: Sebastian Otto MD Admitting Physician: Sebastian Otto MD Vital Signs Most recent to 1 oldest [Reference Range]: Blood Pressure 104/66 mmHg [90-140/60-90 mmHg] (12/15/15 3:50 PM) Problem List Condition Effective Dates Status Health Status Informant Acute serous otitis Active media(Confirmed) Chronic Active fatigue(Confirmed) Chronic Active headaches(Confirmed) EBV Active infection(Confirmed) Contraceptive Active management(Confirmed ) Enlarged Active thyroid(Confirmed) Anxiety and Active depression(Confirmed ) TMJ Active syndrome(Confirmed) Allergies, Adverse Reactions, Alerts Substance Reaction Severity Status Benadryl Active Compazine TMJ locking Active [place] Active Phenergan Active Medications atenolol 50 mg oral tablet See Instructions, TAKE ONE TABLET BY MOUTH DAILY, # 30 tabs, 0 Refill(s), Pharmacy: [facility] #[id number], NEEDS APPT WITH DR. OTTO FOR FURTHER REFILLS, TAKE ONE TABLET BY MOUTH DAILY Start Date: 11/09/15 Status: Ordered busPIRone 15 mg oral tablet See Instructions, TAKE ONE TABLET BY MOUTH THREE TIMES A DAY MUST CALL MD FOR APPOINTMENT, # 30 tabs, eRx: [facility] #[id number], TAKE ONE TABLET BY MOUTH THREE TIMES A DAY MUST CALL MD FOR APPOINTMENT Start Date: 12/08/15 Status: Ordered citalopram 20 mg oral tablet See Instructions, TAKE ONE AND ONE HALF TABLETS BY MOUTH ONCE DAILY, # 45 tabs, 2 Refill(s), Pharmacy: [facility] #[id number], TAKE ONE AND ONE HALF TABLETS BY MOUTH ONCE DAILY Start Date: 11/08/15 Status: Ordered Depo-Provera Contraceptive 150 mg/mL intramuscular [...] q24hr, # 30 tabs, 1 Refill(s), Pharmacy: [facility] # [id number], 1 tabs Oral q24hr Start Date: 12/15/15 Status: Ordered Results No [...] Procedure Date Related Diagnosis Body Site Tonsillectomy [place] teeth extracted Social History Social History Type Response Smoking Status Never smoker Assessment and Plan Extracted from: Title: Ambulatory Patient Education Author: Sebastian Otto MD Date: Behavioral Health Anger Management Anger is a normal human emotion. However, anger can range from mild irritation to rage. When your anger becomes harmful to yourself or others, it is unhealthy anger. CAUSES There are many reasons for unhealthy anger. Many people learn how to express anger from observing how their family expressed anger. In troubled, chaotic, or abusive families, anger can be expressed as rage or even violence. Children can grow up never learning how healthy anger can be expressed. Factors that contribute to unhealthy anger include: Drug or alcohol abuse. Post-traumatic stress disorder. Traumatic brain injury. COMPLICATIONS People with unhealthy anger tend to overreact and retaliate against a real or imagined threat. The need to retaliate can turn into violence or verbal abuse against another person. Chronic anger can lead to health problems, such as hypertension, high blood pressure, and depression. TREATMENT Exercising, relaxing, meditating, or writing out your feelings all can be beneficial in managing moderate anger. For unhealthy anger, the following methods may be used: Cognitive-behavioral counseling (learning skills to change the thoughts that influence your mood). Relaxation training. Interpersonal counseling. Assertive communication skills. Medication. This information is not intended to replace advice given to you by your health care provider. Make sure you discuss any questions you have with your health care provider. Document Released: 12/10/2007 Document Revised: 05/06/2012 Document Reviewed: [employer] Interactive Patient Education 2016 [employer]. Major Depressive Disorder Major depressive disorder is a mental illness. It also may be called clinical depression or unipolar depression. Major depressive disorder usually causes feelings of sadness, hopelessness, or helplessness. Some people with this disorder do not feel particularly sad but lose interest in doing things they used to enjoy (anhedonia). Major depressive disorder also can cause physical symptoms. It can interfere with work, school, relationships, and other normal everyday activities. The disorder varies in severity but is longer lasting and more serious than the sadness we all feel from time to time in our lives. Major depressive disorder often is triggered by stressful life events or major life changes. Examples of these triggers include divorce, loss of your job or home, a move, and the of a family member or close friend. Sometimes this disorder occurs for no obvious reason at all. People who have family members with major depressive disorder or bipolar disorder are at higher risk for developing this disorder, with or without life stressors. Major depressive disorder can occur at any age. It may occur just once in your life (single episode major depressive disorder). It may occur multiple times (recurrent major depressive disorder). SYMPTOMS People with major depressive disorder have either anhedonia or depressed mood on nearly a daily basis for at least 2 weeks or longer. Symptoms of depressed mood include: Feelings of sadness (blue or down in the dumps) or emptiness. Feelings of hopelessness or helplessness. Tearfulness or episodes of crying (may be observed by others). Irritability (children and adolescents). In addition to depressed mood or anhedonia or both, people with this disorder have at least four of the following symptoms: Difficulty sleeping or sleeping too much. Significant change (increase or decrease) in appetite or weight. Lack of energy or motivation. Feelings of guilt and worthlessness. Difficulty concentrating, remembering, or making decisions. Unusually slow movement (psychomotor retardation) or restlessness (as observed by others). Recurrent wishes for , recurrent thoughts of self-harm (suicide), or a suicide attempt. People with major depressive disorder commonly have persistent negative thoughts about themselves, other people, and the world. People with severe major depressive disorder may experiencedistorted beliefs or perceptions about the world (psychotic delusions). They also may see or hear things that are not real (psychotic hallucinations). DIAGNOSIS Major depressive disorder is diagnosed through an assessment by your health care provider. Your health care provider will ask aboutaspects of your daily life, such as mood,sleep, and appetite, to see if you have the diagnostic symptoms of major depressive disorder. Your health care provider may ask about your medical history and use of alcohol or drugs, including prescription medicines. Your health care provider also may do a physical exam and blood work. This is because certain medical conditions and the use of certain substances can cause major depressive disorder-like symptoms (secondary depression). Your health care provider also may refer you to a mental health specialist for further evaluation and treatment. TREATMENT It is important to recognize the symptoms of major depressive disorder and seek treatment. The following treatments can be prescribed for this disorder: Medicine. Antidepressant medicines usually are prescribed. Antidepressant medicines are thought to correct chemical imbalances in the brain that are commonly associated with major depressive disorder. Other types of medicine may be added if the symptoms do not respond to antidepressant medicines alone or if psychotic delusions or hallucinations occur. Talk therapy. Talk therapy can be helpful in treating major depressive disorder by providing support, education, and guidance. Certain types of talk therapy also can help with negative thinking (cognitive behavioral therapy) and with relationship issues that trigger this disorder (interpersonal therapy). A mental health specialist can help determine which treatment is best for you. Most people with major depressive disorder do well with a combination of medicine and talk therapy. Treatments involving electrical stimulation of the brain can be used in situations with extremely severe symptoms or when medicine and talk therapy do not work over time. These treatments include electroconvulsive therapy, transcranial magnetic stimulation, and vagal nerve stimulation. This information is not intended to replace advice given to you by your health care provider. Make sure you discuss any questions you have with your health care provider. Document Released: 06/09/2013 Document Revised: 03/05/2015 Document Reviewed: [employer] Interactive Patient Education 2016 [employer] No follow up information was provided. Extracted from: Title: Office Visit Note Author: Sebastian Otto MD Date: 12/15/15 Assessment/Plan 1.Anxiety and depression Will increase the Celexa to 40mg and get with Dr. Fatmata Mcqueen for anger counseling. Ordered: Office Visit Level 3 Est 82382 2.Chronic headaches Continue with the current medications which seems to be helping. Ordered: Office Visit Level 3 Est 38070 3.Difficulty controlling anger DC theBuspar and start the Wellbutrin XL 150mg and follow up visit with me in 3 weeks. Ordered: Office Visit Level 3 Est 58222
--- OUTSIDE RECORDS SUMMARY | 2016-05-21 14:52 | XMS REPORT | Referral Summary ---
Author Author [facility] Organization [facility] Address Unknown Phone Unavailable Care Team Providers Care Sports Team Manager Name Role Phone Lizzette Otto Primary Care Physician [phone] Encounter VC Date(s): 03/20/16 - 03/20/16 [facility], [address] [place] [address] [place] Discharge Disposition: 01-Home or Self Care Attending Physician: Fatmata Mcqueen APRN Admitting Physician: Fatmata Mcqueen APRN Vital Signs Most recent to 1 oldest [Reference Range]: Temperature Tympanic 36.9 degC [36.6-38.1 degC] (03/20/16 2:15 PM) Peripheral Pulse 78 bpm Rate [60-100 bpm] (03/20/16 2:15 PM) Respiratory Rate 16 br/min [14-20 br/min] (03/20/16 2:15 PM) Blood Pressure 98/60 mmHg [90-140/60-90 mmHg] (03/20/16 2:15 PM) SpO2 98 % (03/20/16 2:15 PM) Problem List Condition Effective Dates Status Health Status Informant Acute serous otitis Active media(Confirmed) Chronic Active fatigue(Confirmed) Chronic Active headaches(Confirmed) EBV Active infection(Confirmed) Contraceptive Active management(Confirmed ) Enlarged Active thyroid(Confirmed) Anxiety and Active depression(Confirmed ) TMJ Active syndrome(Confirmed) Allergies, Adverse Reactions, Alerts Substance Reaction Severity Status Benadryl Active Compazine TMJ locking Active [place] Active Phenergan Active Medications atenolol 50 mg oral tablet See Instructions, TAKE ONE TABLET BY MOUTH DAILY, # 30 tabs, 3 Refill(s), eRx: [facility] #[id number] Start Date: 02/29/16 Status: Ordered busPIRone 15 mg oral tablet See Instructions, TAKE ONE TABLET BY MOUTH THREE TIMES A DAY, # 90 tabs, 3 Refill(s), Pharmacy: [facility] #[id number], TAKE ONE TABLET BY MOUTH THREE TIMES A DAY Start Date: 02/29/16 Status: Ordered citalopram 40 mg oral tablet See Instructions, TAKE ONE TABLET BY MOUTH DAILY, # 30 tabs, eRx: [facility] #[id number] Start Date: 02/29/16 Status: Ordered Depo-Provera Contraceptive 150 mg/mL intramuscular suspension 150 mg 1 mL, IntraMuscular, q3mo, # 1 mL, 0 Refill(s), other reason (Rx) Start Date: 02/16/15 Status: Ordered famotidine 20 mg oral tablet See Instructions, TAKE TWO TABLETS BY MOUTH ONCE DAILY, # 60 tabs, eRx: [facility] [id number] Start Date: 03/16/16 Status: Ordered 1 1 [...] Procedure Date Related Diagnosis Body Site Tonsillectomy [place] teeth extracted Social History Social History Type Response Smoking Status Never smoker Assessment and Plan No data available for this section
--- OUTSIDE RECORDS SUMMARY | 2016-05-21 14:52 | XMS REPORT | Referral Summary ---
Author Author [facility] Organization [facility] Address Unknown Phone Unavailable Care Team Providers Care Freezing Room Worker Name Role Phone Lizzette Otto Primary Care Physician [phone] Encounter Date(s): 11/26/15 - 11/26/15 [facility] [address] [place] [address] Discharge Diagnosis: Anxiety and depression Discharge Diagnosis: Chronic headaches Discharge Diagnosis: Contraceptive management Discharge Diagnosis: Cough Discharge Disposition: 01-Home or Self Care Attending Physician: Gretchen Schroeder PA-C Admitting Physician: Gretchen Schroeder PA-C Vital Signs Most recent to 1 oldest [Reference Range]: Peripheral Pulse 64 bpm Rate [60-100 bpm] (11/26/15 8:52 AM) Respiratory Rate 16 br/min [14-20 br/min] (11/26/15 8:52 AM) Blood Pressure 106/68 mmHg [90-140/60-90 mmHg] (11/26/15 8:52 AM) Problem List Condition Effective Dates Status Health Status Informant Acute serous otitis Active media(Confirmed) Chronic Active fatigue(Confirmed) Chronic Active headaches(Confirmed) EBV Active infection(Confirmed) Contraceptive Active management(Confirmed ) Enlarged Active thyroid(Confirmed) Anxiety and Active depression(Confirmed ) TMJ Active syndrome(Confirmed) Allergies, Adverse Reactions, Alerts No Known Medication Allergies Medications atenolol 50 mg oral tablet See Instructions, TAKE ONE TABLET BY MOUTH DAILY, # 30 tabs, 0 Refill(s), Pharmacy: [facility] #[id number], NEEDS APPT WITH DR. OTTO FOR FURTHER REFILLS, TAKE ONE TABLET BY MOUTH DAILY Start Date: 11/09/15 Status: Ordered busPIRone 15 mg oral tablet See Instructions, TAKE ONE TABLET BY MOUTH THREE TIMES A DAY Pt needs med check with PCP, # 30 tabs, 0 Refill(s), Pharmacy: [facility] #[id number], TAKE ONE TABLET BY MOUTH THREE TIMES A DAY; Pt needs med check with PCP Start Date: 11/22/15 Status: Ordered citalopram 20 mg oral tablet See Instructions, TAKE ONE AND ONE HALF TABLETS BY MOUTH ONCE DAILY, # 45 tabs, 3 Refill(s), eRx: [facility] #[id number], TAKE ONE AND ONE HALF TABLETS BY MOUTH ONCE DAILY Start Date: 06/11/15 Status: Ordered citalopram 20 mg oral tablet See Instructions, TAKE ONE AND ONE HALF TABLETS BY MOUTH ONCE DAILY, # 45 tabs, 2 Refill(s), Pharmacy: [facility] #[id number], TAKE ONE AND ONE HALF TABLETS BY [...] nausea/vomiting, # 10 tabs, 0 Refill(s), Pharmacy: [facility] #[id number], 1 tabs Oral q8hr,PRN:as needed for nausea/ [...] Procedure Date Related Diagnosis Body Site Tonsillectomy [place] teeth extracted Social History Social History Type Response Smoking Status Never smoker Assessment and Plan Extracted from: Title: Office Visit Note- Med ck Author: Gretchen Schroeder PA-C Date: Assessment/Plan Anxiety and depression Will have her continue on Buspar andCelexa at current doses. Usually sees Fatmata for therapy. May need to refer to [facility] in future. She is fine on medication for now, and she is encouraged to call pharmacy for refills. May refill x 6 months. Ordered: Office Visit Level 4 Est 07983 Chronic headaches Continue on Atenolol for now. BPand HR are stable, although a little low.She's not had any syncope. Call pharmacy when refill needed. Recheck in 6 months. Ordered: Office Visit Level 4 Est 46456 Contraceptive management We discussed different control options. I think the OCP would be the best option for her. She will consider this. She wants to get off of the Depofirst though. She is encouraged to call if she would like to change. Ordered: Office Visit Level 4 Est 26530 Cough Lungs sound clear today. I advised that she start on Robyn or Zyrtec daily for her allergy sx. Ordered: Office Visit Level 4 Est 63233
--- OUTSIDE RECORDS SUMMARY | 2016-05-21 14:52 | XMS REPORT | Referral Summary ---
Author Author [facility] Organization [facility] Address Unknown Phone Unavailable Care Team Providers Care Quality Assurance Assistant Name Role Phone Lizzette Otto Primary Care Physician [phone] Encounter VC Date(s): 11/30/15 - 11/30/15 [facility] [address] [place] [address] Discharge Diagnosis: Chest pain Discharge Disposition: 01-Home or Self Care Attending Physician: Dale Escobar PA-C Admitting Physician: Dale Escobar PA-C Vital Signs Most recent to 1 oldest [Reference Range]: Temperature Tympanic 36.9 degC [36.6-38.1 degC] (11/30/15 4:33 PM) Peripheral Pulse 103 bpm Rate [60-100 bpm] *HI* (11/30/15 4:33 PM) Blood Pressure 118/64 mmHg [90-140/60-90 mmHg] (11/30/15 4:33 PM) SpO2 97 % (11/30/15 4:33 PM) Problem List Condition Effective Dates Status Health Status Informant Acute serous otitis Active media(Confirmed) Chronic Active fatigue(Confirmed) Chronic Active headaches(Confirmed) EBV Active infection(Confirmed) Contraceptive Active management(Confirmed ) Enlarged Active thyroid(Confirmed) Anxiety and Active depression(Confirmed ) TMJ Active syndrome(Confirmed) Allergies, Adverse Reactions, Alerts Substance Reaction Severity Status Benadryl Active [place] Active Phenergan Active Medications atenolol 50 mg oral tablet See Instructions, TAKE ONE TABLET BY MOUTH DAILY, # 30 tabs, 0 Refill(s), Pharmacy: [facility] #[id number], NEEDS APPT WITH DR. OTTO FOR FURTHER REFILLS, TAKE ONE TABLET BY MOUTH DAILY Start Date: 11/09/15 Status: Ordered busPIRone 15 mg oral tablet See Instructions, TAKE ONE TABLET BY MOUTH THREE TIMES A DAY Pt needs med check with PCP, # 30 tabs, 0 Refill(s), Pharmacy: [facility] #[id number], TAKE ONE TABLET BY MOUTH THREE TIMES A DAY; Pt needs med check with PCP Start Date: 11/22/15 Status: Ordered citalopram 20 mg oral tablet See Instructions, TAKE ONE AND ONE HALF TABLETS BY MOUTH ONCE DAILY, # 45 tabs, 3 Refill(s), eRx: [facility] #[id number], TAKE ONE AND ONE HALF TABLETS BY MOUTH ONCE DAILY Start Date: 06/11/15 Status: Ordered citalopram 20 mg oral tablet See Instructions, TAKE ONE AND ONE HALF TABLETS BY MOUTH ONCE DAILY, # 45 tabs, 2 Refill(s), Pharmacy: [facility] #[id number], TAKE ONE AND ONE HALF TABLETS BY [...] nausea/vomiting, # 10 tabs, 0 Refill(s), Pharmacy: [facility] #[id number], 1 tabs Oral q8hr,PRN:as needed for nausea/ vomiting Start Date: 06/22/15 Status: Ordered Results Urinalysis Most recent to 1 oldest [Reference Range]: UA Color Yellow (11/30/15 4:27 PM) UA Appear Clear (11/30/15 4:27 PM) UA pH [5.0-8.0] 6.5 (11/30/15 4:27 PM) UA Leuk Est Negative [Negative] (11/30/15 4:27 PM) UA Nitrite Negative [Negative] (11/30/15 4:27 PM) UA Protein Negative [Negative] (11/30/15 4:27 PM) UA Glucose Negative [Negative] (10/4/16 4:27 PM) UA Ketones Negative [Negative] (11/30/15 4:27 PM) UA Urobilinogen 0.2 mg/dL [<=1.0 mg/dL] (11/30/15 4:27 PM) UA Bili [Negative] Negative (11/30/15 4:27 PM) UA Blood [Negative] Negative (11/30/15 4:27 PM) UA Spec Grav 1.010 [1.003-1.030] (11/30/15 4:27 PM) Type Cl Catch (11/30/15 4:27 PM) Immunizations Vaccine Date Refusal Reason tetanus/diphth/pertuss [...] Procedure Date Related Diagnosis Body Site Tonsillectomy [place] teeth extracted Social History Social History Type Response Smoking Status Never smoker Assessment and Plan No data available for this section
--- OUTSIDE RECORDS SUMMARY | 2016-05-21 14:52 | XMS REPORT | Referral Summary ---
Author Author [facility] Organization [facility] Address Unknown Phone Unavailable Care Team Providers Care Pillowcase Cleaner Name Role Phone Lizzette Otto Primary Care Physician [phone] Encounter VC Date(s): 03/15/16 - 03/15/16 [facility], [address] [place] [address] Discharge Disposition: 01-Home or Self Care Attending Physician: Fatmata Mcqueen APRN Admitting Physician: Fatmata Mcqueen APRN Vital Signs Most recent to 1 oldest [Reference Range]: Temperature Tympanic 37.0 degC [36.6-38.1 degC] (03/15/16 3:47 PM) Peripheral Pulse 73 bpm Rate [60-100 bpm] (03/15/16 3:47 PM) Respiratory Rate 15 br/min [14-20 br/min] (03/15/16 3:47 PM) Blood Pressure 100/60 mmHg [90-140/60-90 mmHg] (03/15/16 3:47 PM) SpO2 98 % (03/15/16 3:47 PM) Problem List Condition Effective Dates Status Health Status Informant Acute serous otitis Active media(Confirmed) Chronic Active fatigue(Confirmed) Chronic Active headaches(Confirmed) EBV Active infection(Confirmed) Contraceptive Active management(Confirmed ) Enlarged Active thyroid(Confirmed) Anxiety and Active depression(Confirmed ) TMJ Active syndrome(Confirmed) Allergies, Adverse Reactions, Alerts Substance Reaction Severity Status Benadryl Active Compazine TMJ locking Active [place] Active Phenergan Active Medications atenolol 50 mg oral tablet See Instructions, TAKE ONE TABLET BY MOUTH DAILY, # 30 tabs, 3 Refill(s), eRx: [facility] #[id number] Start Date: 02/29/16 Status: Ordered busPIRone 15 mg oral tablet See Instructions, TAKE ONE TABLET BY MOUTH THREE TIMES A DAY, # 90 tabs, 3 Refill(s), Pharmacy: [facility] #[id number], TAKE ONE TABLET BY MOUTH THREE TIMES A DAY Start Date: 02/29/16 Status: Ordered citalopram 40 mg oral tablet See Instructions, TAKE ONE TABLET BY MOUTH DAILY, # 30 tabs, eRx: [facility] #[id number] Start Date: 02/29/16 Status: Ordered Depo-Provera Contraceptive 150 mg/mL intramuscular suspension 150 mg 1 mL, IntraMuscular, q3mo, # 1 mL, 0 Refill(s), other reason (Rx) Start Date: 02/16/15 Status: Ordered famotidine 20 mg oral tablet 40 mg 2 tabs, Oral, Daily, # 60 tabs, 1 Refill(s), Pharmacy: [id number], 2 tabs Oral Daily Start Date: 01/11/16 [...] Procedure Date Related Diagnosis Body Site Tonsillectomy [place] teeth extracted Social History Social History Type Response Smoking Status Never smoker Assessment and Plan No data available for this section
--- OUTSIDE RECORDS SUMMARY | 2016-05-21 14:52 | XMS REPORT | Referral Summary ---
Author Author [facility] Organization [facility] Address Unknown Phone Unavailable Care Team Providers Care Events Administrative Assistant Name Role Phone Lizzette Otto Primary Care Physician [phone] Encounter Date(s): 02/24/16 - 02/24/16 [facility] [address] [place] [address]- Discharge Disposition: 01-Home or Self Care Attending Physician: Fatmata Mcqueen APRN Admitting Physician: Fatmata Mcqueen APRN Vital Signs Most recent to 1 oldest [Reference Range]: Blood Pressure 98/58 mmHg [90-140/60-90 mmHg] (02/24/16 3:15 PM) Problem List Condition Effective Dates Status Health Status Informant Acute serous otitis Active media(Confirmed) Chronic Active fatigue(Confirmed) Chronic Active headaches(Confirmed) EBV Active infection(Confirmed) Contraceptive Active management(Confirmed ) Enlarged Active thyroid(Confirmed) Anxiety and Active depression(Confirmed ) TMJ Active syndrome(Confirmed) Allergies, Adverse Reactions, Alerts Substance Reaction Severity Status Benadryl Active Compazine TMJ locking Active [place] Active Phenergan Active Medications atenolol 50 mg oral tablet See Instructions, TAKE ONE TABLET BY MOUTH DAILY DUE FOR APPOINTMENT, # 30 tabs, eRx: [facility] #[id number], TAKE ONE TABLET BY MOUTH DAILY DUE FOR APPOINTMENT Start Date: 12/22/15 Status: Ordered busPIRone 15 mg oral tablet See Instructions, TAKE ONE TABLET BY MOUTH THREE TIMES A DAY, # 90 tabs, eRx: [facility] #[id number], TAKE ONE TABLET BY MOUTH THREE TIMES A DAY Start Date: 01/31/16 Status: Ordered citalopram 40 mg oral tablet See Instructions, TAKE ONE TABLET BY MOUTH DAILY, # 30 tabs, eRx: [facility] #[id number], TAKE ONE TABLET BY MOUTH DAILY Start Date: 01/31/16 Status: Ordered Depo-Provera Contraceptive 150 mg/mL intramuscular suspension 150 mg 1 mL, IntraMuscular, q3mo, # 1 mL, 0 Refill(s), other reason (Rx) Start Date: 02/16/15 Status: Ordered famotidine 20 mg oral tablet 40 mg 2 tabs, Oral, Daily, # 60 tabs, 1 Refill(s), Pharmacy: [id number], 2 tabs Oral Daily Start Date: 01/11/16 Status: Ordered 1 1 caps, Oral, Daily, 0 Refill(s) Start Date: 12/15/15 Status: Ordered Results Hematology Most recent to 1 oldest [Reference Range]: WBC [5.0-10.0 5.4 10*3/uL 10*3/uL] (02/24/16 3:13 PM) RBC [3.70-5.20] 4.35 (02/24/16 3:13 PM) Hgb [12.0-16.0 13.2 gm/dL gm/dL] (02/24/16 3:13 PM) Hct [37.0-47.0 %] 38.1 % (02/24/16 3:13 PM) MCV [80.0-96.0 fL] 87.6 fL (02/24/16 3:13 PM) MCH [26.0-34.0 pg] 30.3 pg (02/24/16 3:13 PM) MCHC [32.0-36.0 34.6 gm/dL gm/dL] (02/24/16 3:13 PM) RDW [0.0-14.5 %] 12.0 % (02/24/16 3:13 PM) Platelet [150-400 194 10*3/uL 10*3/uL] (02/24/16 3:13 PM) MPV [8.8-14.8 fL] 9.9 fL (02/24/16 3:13 PM) Neutrophils [50-70 48 % %] *LOW* (02/24/16 3:13 PM) Lymphocytes [20-40 39 % %] (02/24/16 3:13 PM) Monocytes [4-8 %] 11 % *HI* (02/24/16 3:13 PM) Eosinophils [0-6 %] 1 % (02/24/16 3:13 PM) Basophils [0-2 %] 1 % (02/24/16 3:13 PM) Neutro Absolute 2.58 [2.50-7.00] (02/24/16 3:13 PM) Lymph Absolute 2.10 [1.00-4.00] (02/24/16 3:13 PM) Brule Absolute 0.57 [0.20-0.80] (02/24/16 3:13 PM) Eos Absolute 0.06 [0.00-0.60] (02/24/16 3:13 PM) Baso Absolute 0.04 [0.00-0.30] (02/24/16 3:13 PM) Immunizations Given and Recorded Vaccine Date Status [...] Procedures Procedure Date Related Diagnosis Body Site Collection of venous blood by venipuncture 02/24/16 Tonsillectomy [place] teeth extracted Social History Social History Type Response Smoking Status Never smoker Assessment and Plan No data available for this section
--- NOTE | 2016-05-21 15:20 | NUR ---
ELIMINATION PT AMBULATED TO BR TO VOID FOR UA
[2016-05-21] MEDS ORDERED: NORG1TAB13 PO (15:25)
[2016-05-21] MEDS ORDERED: ONDA-56 PO (15:25)
[2016-05-21] MEDS ORDERED: AMOX500C2 PO (15:25)
[2016-05-21] MEDS ORDERED: BUSP15TA3 PO (15:26)
[2016-05-21 15:27] VITALS: Ht 157.5 cm; Wt 65.7 kg
[2016-05-21 15:38] LABS: BLOOD, URINE NEGATIVE (NEGATIVE); COLOR,URINE YELLOW (YELLOW); LEUKOCYTE ESTERASE ,URINE NEGATIVE (NEGATIVE); NITRITE,URINE NEGATIVE (NEGATIVE); UROBILINOGEN,URINE 0.2 EU/DL (NORMAL)
--- NOTE | 2016-05-21 16:08 | ERPDOC ---
Departure Disposition Decision Date: May 21, 2016 Disposition Decision Time: 18:26 (CHRISTIANO FRAIRE APRN) Disposition: 01 DISCHARGED HOME, SELF-CARE Impression Impression (CHRISTIANO FRAIRE APRN) Impression: Primary Impression: Constipation Constipation type: slow transit constipation Qualified Codes: K59.01 - Slow transit constipation Condition: Stable Seen By: Mid-level only (CHRISTIANO FRAIRE APRN) Referrals: MACO TEMPLE MD (Family) Patient Instructions: Constipation (ED) Problems/Meds/Labs Reviewed?: Yes Medications reviewed and manag: Yes (CHRISTIANO FRAIRE APRN) Additional Instructions: Your labs were normal today. Your abdominal film shows a large amount of stool in your: Indicating constipation. You may take [id number] MiraLAX or milk of magnesia. Follow treatment plan. You may take [id number] ibuprofen for pain. Follow with your PCP for symptoms are not improving in the next 2-3 days. Follow up care ordered?: Yes Mental Status: Alert, Oriented (CHRISTIANO FRAIRE APRN) HPI - Abdominal Pain General Chief Complaint: Abdominal Pain Stated Complaint: PELVIC PAIN, PAIN UP LEFT SIDE Time Seen by Provider: 15:37 Source: patient (CHRISTIANO FRAIRE APRN) HPI - Abdominal Pain Initial Comments 21-year-old female presents to ER with left lower quadrant pain that started yesterday. Pain was worse with ambulation. States pain now radiates across to right lower quadrant. Patient admits mild nausea. Denies fever, chills, vomiting, diarrhea or constipation, dysuria, new vaginal discharge. Patient does state that she did have urinary frequency yesterday. Patient denies any new sexual partners, has been with the same person for the last 5 years. Patient recently switched from depo to control pills. Patient states her period was due last week and she has not started yet. Pain Scale: Now: 5/10 Modifying Factors: WORSE WITH: walking Associated Symptoms: DENIES: back pain, chest pain, diaphoresis, fatigue, fever /chills, headache, heartburn, shortness of breath, swelling/mass in abdomen, weakness (CHRISTIANO FRAIRE APRN) Allergies: Coded Allergies: hydrocodone (Verified Allergy, Unknown, 05/21/16) prochlorperazine (Verified Allergy, Unknown, 05/21/16) promethazine (Verified Allergy, Unknown, 05/21/16) diphenhydramine (Unverified Adverse Reaction, Unknown, HALLUCINATIONS, ) Past History Past Medical History Metabolic: DENIES: diabetes Cardiac: DENIES: angina Respiratory: DENIES: asthma GI: GERD Female: UTI, other (urethral stricture) Neurological: headaches, migraines Psychological: anxiety, depression (CHRISTIANO FRAIRE AUTOMOTIVE GENERATOR REPAIRER) Surgical History General: tonsils Reproductive/: other (cysto with dilatation of urethra) (CHRISTIANO FRAIRE AUTOMOTIVE GENERATOR REPAIRER) Family History Family PMH: FOUND: MD, diabetes, hypertension (CHRISTIANO FRAIRE AUTOMOTIVE GENERATOR REPAIRER) Vaccines Hx Influenza Vaccination: No Hx Pneumococcal Vaccination: No (CARLO FRAIRES [place] AUTOMOTIVE GENERATOR REPAIRER) Social History Does patient use chewing tobac: No Second Hand Exposure: No Substance Use Type: does not use Alcohol Intake: none Sexuality: male partner (CHRISTIANO FRAIRE AUTOMOTIVE GENERATOR REPAIRER) Review of Systems Constitutional Constitutional: DENIES: chills, dizziness, fever, weakness (CARLO FRAIRES A AUTOMOTIVE GENERATOR REPAIRER) Eyes General: DENIES: erythema, exudate Lids/Accessories: DENIES: erythema, swelling (CARLO FRAIRES A AUTOMOTIVE GENERATOR REPAIRER) ENMT Ears: DENIES: pain Sinuses: DENIES: congestion, rhinorrhea Mouth/Throat: DENIES: sore throat (CARLO FRAIRES A AUTOMOTIVE GENERATOR REPAIRER) Cardiovascular Cardiac: DENIES: chest pain, murmur Rhythm/Rate: DENIES: palpitations (CARLO FRAIRES A AUTOMOTIVE GENERATOR REPAIRER) Pulmonary Respiratory: DENIES: cough, dyspnea (CARLO FRAIRES A AUTOMOTIVE GENERATOR REPAIRER) GI Upper Abdomen: nausea, DENIES: pain, vomiting Lower Abdomen: pain, DENIES: diarrhea (CARLO FRAIRES A AUTOMOTIVE GENERATOR REPAIRER) General: DENIES: dysuria, pain (CARLO FRAIRES A AUTOMOTIVE GENERATOR REPAIRER) Musculoskeletal General: DENIES: joint pain, pain, tenderness (CARLO FRAIRES A AUTOMOTIVE GENERATOR REPAIRER) Integumentary Skin: DENIES: color change, itching, rash (CARLO FRAIRES A AUTOMOTIVE GENERATOR REPAIRER) Neurological General: DENIES: ataxia, change in strength, numbness, paralysis/paresis, weakness (CARLO FRAIRES A AUTOMOTIVE GENERATOR REPAIRER) Psychiatric Psychiatric: DENIES: anxiety, depression, nervousness (CARLO FRAIRES A AUTOMOTIVE GENERATOR REPAIRER) Physical Exam General General Nourishment: well nourished, well developed, no acute distress, adult General Body Habitus: well groomed (CARLO FRAIRES [place] AUTOMOTIVE GENERATOR REPAIRER) Vitals and Pain First Documented Vital Signs Date Time Temp Pulse Resp B/P Pulse Ox O2 Delivery O2 Flow Rate FiO2 05/21/16 15:27 98.8 85 16 124/58 98 Room Air (RICARDO HINOJOSA MD) Vitals and Pain Weight: Kilograms: 65.700 Height (feet): 5 Height (inches): 2.00 Triage Pain Scale: (CARLO FRAIRES A AUTOMOTIVE GENERATOR REPAIRER) Eyes (brief) Eyes Brief: found: EOMI, PERRL (CARLO FRAIRES A AUTOMOTIVE GENERATOR REPAIRER) ENMT (brief) ENMT Brief: NOT FOUND: nasal exudate, nasal swelling (CARLO FRAIRES A AUTOMOTIVE GENERATOR REPAIRER) Neck (brief) Neck: FOUND: trachea midline (CARLO FRAIRES A AUTOMOTIVE GENERATOR REPAIRER) Respiratory (brief) Respiratory: FOUND: clear all romo, equal bilaterally, symmetrical (CARLO FRAIRES A AUTOMOTIVE GENERATOR REPAIRER) Cardiovascular (brief) Cardiac: FOUND: regular rate, regular rhythm (CARLO FRAIRES A AUTOMOTIVE GENERATOR REPAIRER) Abdomen Inspection: NOT FOUND: distention Palpation: FOUND: soft, tender (mild LLQ TTP), NOT FOUND: McBurney's point tender, Caldwell's sign, Rosving's sign, hepatomegaly, involuntary guarding, rebound, splenomegaly, voluntary guarding Auscultation: FOUND: hypoactive (x4) (CARLO FRAIRES A AUTOMOTIVE GENERATOR REPAIRER) Musculoskeletal (brief) Musculoskeletal Brief: NOT FOUND: deformity, tenderness (CARLO FRAIRES A AUTOMOTIVE GENERATOR REPAIRER) Integumentary (brief) Integumentary Brief: FOUND: dry, pink, warm (CARLO FRAIRES A AUTOMOTIVE GENERATOR REPAIRER) Neurologic (brief) Neurological Brief: FOUND: motor-no gross deficits, sensory-no gross deficits ( CARLO FRAIRES A AUTOMOTIVE GENERATOR REPAIRER) Psychiatric (brief) Psychiatric Brief: FOUND: alert, normal affect, oriented (CARLO FRAIRES A AUTOMOTIVE GENERATOR REPAIRER ) Differential Diagnoses Considering: Appendicitis, Constipation, Ovarian Cyst, UTI, Other ( premenstrual pain) (CARLO FRAIRES A AUTOMOTIVE GENERATOR REPAIRER) Progress Results/Orders Orders Procedure Category Date Status Time Ua, Dip Wreflex LAB 05/21/16 Complete Microsc & Patient Safety Attendant 15:21 LAB 05/21/16 Complete Qualitative, Urine 15:21 Cbc W/Auto LAB 05/21/16 Complete Diff-Reflex Manual Cmp - Comprehensive LAB 05/21/16 Complete Metabolic Kub W/Upright RAD 05/21/16 Resulted (RICARDO HINOJOSA MD) Lab Results Laboratory Tests Test 05/21/16 15:24 05/21/16 16:48 Urine Collection Type Cleancatch-midstream Urine Color Yellow Urine Turbidity Clear Urine pH 7.0 Urine Specific [place] 1.015 Urine Protein Negative Urine Glucose (UA) Negative Urine Ketones Negative Urine Blood Negative Urine Nitrite Negative Urine Bilirubin Negative Urine Urobilinogen 0.2EU/DL Urine Leukocyte Esterase Negative Urinalysis Comment Microscopic not ind. Urine Test Negative White Blood Count 6.2T/MM3 Red Blood Count 4.57M/MM3 Hemoglobin 13.6GM/DL Hematocrit 39.7% Mean Corpuscular Volume 86.9UM3 Mean Corpuscular Hemoglobin 29.8UUG Mean Corpuscular Hemoglobin Concent 34.3GM/DL RDW Standard Deviation 38.8FL Platelet Count 218T/MM3 Mean Platelet Volume 10.4UM3 Immature Granulocyte % (Auto) 0.0% Neutrophils (%) (Auto) 59.1% Lymphocytes (%) (Auto) 31.7% Monocytes (%) (Auto) 7.4% Eosinophils (%) (Auto) 1.3% Basophils (%) (Auto) 0.5% Absolute Immature Granulocyte (auto 0.00T/MM3 Absolute Neutrophils (auto) 3.7T/MM3 Absolute Lymphocytes (auto) 2.0T/MM3 Absolute Monocytes (auto) 0.5T/MM3 Absolute Eosinophils (auto) 0.1T/MM3 Absolute Basophils (auto) 0.0T/MM3 Turbidity < 20 Sodium Level 140MEQ/L Potassium Level 4.5MEQ/L Chloride Level 106MEQ/L Carbon Dioxide Level 27MEQ/L Anion Gap 7MEQ/L Blood Urea Nitrogen 18.0MG/DL Creatinine 1.0MG/DL Glomerular Filtration Rate Calc 71 BUN/Creatinine Ratio 18RATIO Glucose Level 96MG/DL Calculated Osmolality 271MOSM/KG Calcium Level 9.5MG/DL Total Bilirubin 0.50MG/DL Icterus Index < 2 Aspartate Amino Transf (AST/SGOT) 26U/L Alanine Aminotransferase (ALT/SGPT) 53U/L Alkaline Phosphatase 48U/L Total Protein 6.8G/DL Albumin 3.9G/DL Globulin 2.9G/DL Albumin/Globulin Ratio 1.3RATIO Chemistry Specimen Hemolysis < 15 (RICARDO HINOJOSA MD) Progress Progress Patient declines IV. Patient CBC normal CMP and UA unremarkable Negative Hcg I discussed labs and answered questions. KUB shows moderate stool burdening:. I discussed with patient that pain may be related to her getting ready to start her menses however she does have a moderate amount of stool in her colon indicating constipation. I discussed treatment plan, follow-up with PCP if symptoms are not improving in the next 1-2 days and return precautions which patient verbalized understanding. Patient declined toradol. (CHRISTIANO FRAIRE APRN) Xray Xray : Xray: KUB Upright (nonobstructive pattern moderate stool burdening: (Dr. Hinojosa)) (CHRISTIANO FRAIRE APRN) Xray : Xray: KUB Upright Interpretation: Normal, Interpreted by Me (no free air or fluid levels nonspecific bowel gas pattern) (RICARDO HINOJOSA MD) CHRISTIANO FRAIRE APRN May 21, 2016 16:08 RICARDO HINOJOSA MD May 22, 2016 02:26
--- OUTSIDE RECORDS SUMMARY | 2016-05-21 16:08 | XMS REPORT | Continuity of Care Document ---
Author Author [facility] Organization [facility] Address Unknown Phone Unavailable Allergies Medications Problems Procedures Results Test Result Range HEP B SURF AB (EMP) - 12/27/15 13:52 HEP B SURFACE AB (EMP) <3.1 Immunity> 9.9 VARICELLA ZOSTER IGG PRE EMP - 12/27/15 13:52 VARICELLA ZOSTER IGG PRE EMP 1186 Immune >165 Encounters ACCT No. Visit Date/Time Discharge Status Pt. Type Provider Facility Loc./Unit Complaint [id number] 05/17/2013 11:21:00 05/17/2013 23 :59:59 CLS Outpatient [id number] 05/09/2013 16:00:00 05/09/2013 23 :59:59 CLS Outpatient [id number] 04/25/2013 15:54:00 04/25/2013 23 :59:59 CLS Outpatient [id number] 04/21/2013 10:50:00 04/21/2013 23 :59:59 CLS Outpatient [id number] 04/11/2013 09:36:00 04/11/2013 23 :59:59 CLS Outpatient [id number] 03/20/2013 16:14:00 03/20/2013 23 :59:59 CLS Outpatient
--- OUTSIDE RECORDS SUMMARY | 2016-05-21 16:09 | XMS REPORT ---
Author Author [facility] Organization Unknown Address Unknown Phone Unavailable Care Team Providers Care Rolling Machine Operator Name Role Phone PP Unavailable Reason For [...]
[2016-05-21 16:52] LABS: BASOPHILS % (AUTO) 0.5 % (0-2); EOSINOPHILS # (AUTO) 0.1 T/MM3 (0-0.5); EOSINOPHILS % (AUTO) 1.3 % (0-4); HCT - HEMATOCRIT 39.7 % (36-46); HGB - HEMOGLOBIN 13.6 GM/DL (12-16); LYMPHOCYTES % (AUTO) 31.7 % (23-45); MEAN CORPUSCULAR HGB 29.8 UUG (26-34); MEAN CORPUSCULAR HGB CONC(MCHC 34.3 GM/DL (31-37); MEAN CORPUSCULAR VOLUME 86.9 UM3 (80-100); MEAN PLATELET VOLUME 10.4 UM3 (9.4-12.4); MONOCYTES # (AUTO) 0.5 T/MM3 (0-0.8); MONOCYTES % (AUTO) 7.4 % (0-9.0); NEUTROPHILS #(AUTO)-ABSOLUTE 3.7 T/MM3 (1.8-7.7); NEUTROPHILS % (AUTO) 59.1 % (33-66); RED BLOOD COUNT 4.57 M/MM3 (4.00-5.20); WBC - WHITE BLOOD COUNT 6.2 T/MM3 (4.5-11.0)
[2016-05-21 17:02] LABS: ALBUMIN 3.9 G/DL (3.5-5.0); ALBUMIN/GLOBULIN RATIO 1.3 RATIO (1.1-2.2); ALKALINE PHOSPHATASE 48 U/L (38-126); ALT (SGPT) 53 U/L (9-52); ANION GAP 7 MEQ/L (5-15); AST (SGOT) 26 U/L (14-36); BUN/CREATININE RATIO 18 RATIO (6-26); CALCIUM 9.5 MG/DL (8.4-10.2); CHLORIDE 106 MEQ/L (98-107); CO2 - CARBON DIOXIDE 27 MEQ/L (22-30); GLOMERULAR FILTRATION RATE 71; GLUCOSE 96 MG/DL (65-110); POTASSIUM 4.5 MEQ/L (3.6-5); SODIUM 140 MEQ/L (134-144); TOTAL PROTEIN 6.8 G/DL (6.3-8.2)
[2016-05-21 18:45] VITALS: BP 119/61; PULSE 79; RESP 16; TEMP 98.8; O2SAT 97
--- NOTE | 2016-05-21 21:20 | DI ---
Indication: ITS.REASON: LLQ pain PROCEDURE: KUB W/UPRIGHT: Encounter: Initial Comparison: None Findings: The visualized lung bases are clear. There is no free air on the upright view. The bowel gas pattern is nonobstructive and nonspecific. Gas is seen in nondilated small and large bowel to the level of the rectum. Moderate stool is seen throughout the colon. The bony structures are grossly unremarkable. Impression: Nonobstructive nonspecific bowel gas pattern. .
== END 2016-05-21 18:45 | disposition home or self-care (01) ==
LOC: ED 14:46
DX: K59.01 Slow transit constipation (principal); R35.0 Frequency of micturition
CPT/HCPCS: 36415; 80053; 81003; 81025; 85025

== ENCOUNTER 2016-06-06 06:25 | Emergency (ER) | payer BC ==
[~2016-06-06] VITALS: Ht 157.5 cm; Wt 65.8 kg
[~2016-06-06 06:25] MED LIST changes: +AMOX500C2 PO; -BACL10TA PO; -BUSP10TA3 PO; +BUSP15TA3 PO; -MEDR150D4 IM; +NORG1TAB13 PO; +ONDA-56 PO; -ONDA4TAB7 PO; -PROC-14 PO
[2016-06-06 06:26] VITALS: TEMP 97.8; Ht 157.5 cm; Wt 65.8 kg
--- OUTSIDE RECORDS SUMMARY | 2016-06-06 06:29 | XMS REPORT | Continuity of Care Document ---
Author Author [facility] Organization [facility] Address Unknown Phone Unavailable Support Name Relationship Address Phone SONYA HERNANDEZ Lurdes OLIVER Caregiver [address] [place] [address] Unavailable MACO TEMPLE MD Caregiver [address] [place] [address] Unavailable DAIANA [place] [address] Insurance Providers Guarantor Rehana Hamilton Address [address] [place] [address] Email DENIED 16 Payer [facility] Policy Number [id number] Subscriber's Name HamiltonWolf kathleennis Relationship 18 Self Group Number [id number] Chief Complaint and Reason for Visit Chief Complaint Abdominal Pain Reason for Visit Constipation Problems Active Problems Medical Problem Onset Date Status GERD (gastroesophageal reflux disease) Unknown Acute Migraine equivalent Unknown Acute UTI (urinary tract infection) Unknown Acute Past Problems Medical Problem Onset Date Abdominal pain Unknown Constipation Unknown Constipation Unknown Epigastric abdominal pain Unknown Gastritis Unknown Mesenteric adenitis Unknown Migraine headache Unknown Muscle spasms of neck Unknown Right upper quadrant abdominal pain Unknown Yeast infection involving the vagina and surrounding area Unknown Medications Current Home Medications Medication Dose Units Route Directions Days Qty Instructions Start Date Amoxicillin 500 Mg Capsule 500 Mg Oral Three Times A Day 05/21/16 Atenolol 50 Mg Tablet 50 Mg Oral Daily 11/27/15 Buspirone Hcl 15 Mg Tablet 15 Mg Oral Three Times A Day 05/21/16 Citalopram Hydrobromide (Citalopram Hbr) 20 Mg Tablet 30 Mg Oral Daily 01/11/15 Famotidine 20 Mg Tablet 20 Mg Oral Daily 12/02/15 Norgestrel-Ethinyl Estradiol (Tri-Sprintec Tablet) 1 Tab Tablet 1 Tab Oral Daily 05/21/16 Ondansetron Hcl 8 Mg Tablet 8 Mg Oral Every 6 Hours as needed for Nausea &/ Or Vomiting 05/21/16 Past Home Medications Medication Directions Ordered Status Loratadine (Alavert) 10 Mg Tablet, 10 Mg Oral Daily 01/02/10 Discontinued Social History Social History Problem Response Recorded Date/Time Onset Date Status Hx Substance Use No 05/21/2016 4:32pm Not Applicable Not Applicable Hx Alcohol Use Y rare 05/21/2016 4:32pm Not Applicable Not Applicable Has the pt used tobacco in the last 12 months No 06/18/2015 9:27am Not Applicable Not Applicable Tobacco Usage none 09/13/2014 3:59pm Not Applicable Not Applicable Query Response Start Date Stop Date Smoking Status Never smoker Hospital Discharge Instructions No hospital discharge instructions. Plan of Care Discharge Date 05/21/16 6:45pm Disposition 01 DISCHARGED HOME, SELF-CARE Condition at Discharge Stable Instructions/Education Provided Constipation (ED) Prescriptions See Medication Section Referrals MACO TEMPLE MD Address: [address] [place] [address] [place] [phone] Additional Instructions/Education Your labs were normal today. Your abdominal film shows a large amount of stool in your: Indicating constipation. You may take [id number] MiraLAX or milk of magnesia. Follow treatment plan. You may take [id number] ibuprofen for pain. Follow with your PCP for symptoms are not improving in the next 2-3 days. Care Plan and Goals Physician Care Plan Problem: Constipation Goal: Follow up with primary care provider Instructions: Take medications and follow care plan as discussed/written Functional Status No functional status results. Allergies, Adverse Reactions, Alerts Allergen Type Severity Reaction Status Last Updated Prochlorperazine Allergy Unknown Active 05/21/16 Hydrocodone Allergy Unknown Active 05/21/16 Promethazine Allergy Unknown Active 05/21/16 Diphenhydramine Adverse Reaction Unknown HALLUCINATIONS Active 05/21/16 Immunizations Query Response on File Recorded Date/Time Hx Influenza Vaccination No 06/18/15 9:27am Hx Pneumococcal Vaccination No 06/18/15 9:27am Hx Influenza Vaccination No 06/18/15 9:27am Influenza Vaccine Hx 11/201505/21/16 4:32pm Vital Signs Acute Vital Signs Vital Response Date/Time Temperature (Fahrenheit) 98.8 deg F (96.8 - 99.1) 05/21/2016 6:45pm Temperature (Calculated Celsius) 37.01954 degrees C (36.0 - 37.3) 05/21/2016 6:45pm Pulse Rate (adult) 79 bpm (60 - 100) 05/21/2016 6:45pm Respiratory Rate 16 breaths/min (10 - 20) 05/21/2016 6:45pm O2 Sat by Pulse Oximetry 97 % (90 - 100) 05/21/2016 6:45pm Blood Pressure 119/61 mm Hg 05/21/2016 6:45pm Height (Feet) 5 feet 05/21/2016 3:27pm Height (Inches) 2.00 inches 05/21/2016 3:27pm Weight (Kilograms) 65.700 kg 05/21/2016 3:27pm Body Mass Index (BMI) 26.0 05/21/2016 3:27pm Results Laboratory Results Test Name Result Units Flags Reference Collection Date/Time Result Date/ Time Comments White Blood Count 6.2 T/MM3 4.5-11.0 05/21/2016 4:48pm 05/21/2016 4: 52pm Red Blood Count 4.57 M/MM3 4.00-5.20 05/21/2016 4:48pm 05/21/2016 4: 52pm Hemoglobin 13.6 GM/DL 12-16 05/21/2016 4:48pm 05/21/2016 4:52pm Hematocrit 39.7 % 36-46 05/21/2016 4:48pm 05/21/2016 4:52pm Mean Corpuscular Volume 86.9 UM3 80-100 05/21/2016 4:48pm 05/21/2016 4: 52pm Mean Corpuscular Hemoglobin 29.8 UUG 26-34 05/21/2016 4:48pm 2016 4:52pm Mean Corpuscular Hemoglobin Concent 34.3 GM/DL 31-37 05/21/2016 4:48pm 05/21/2016 4:52pm RDW Standard Deviation 38.8 FL 36.9-50.2 05/21/2016 4:48pm 05/21/2016 4 :52pm Platelet Count 218 T/MM3 130-400 05/21/2016 4:48pm 05/21/2016 4:52pm Mean Platelet Volume 10.4 UM3 9.4-12.4 05/21/2016 4:48pm 05/21/2016 4: 52pm Neutrophils (%) (Auto) 59.1 % 33-66 05/21/2016 4:48pm 05/21/2016 4: 52pm Lymphocytes (%) (Auto) 31.7 % 23-45 05/21/2016 4:48pm 05/21/2016 4: 52pm Monocytes (%) (Auto) 7.4 % 0-9.0 05/21/2016 4:48pm 05/21/2016 4:52pm Eosinophils (%) (Auto) 1.3 % 0-4 05/21/2016 4:48pm 05/21/2016 4:52pm Basophils (%) (Auto) 0.5 % 0-2 05/21/2016 4:48pm 05/21/2016 4:52pm Immature Granulocyte % (Auto) 0.0 % 0.0-0.5 05/21/2016 4:48pm 2016 4:52pm Absolute Neutrophils (auto) 3.7 T/MM3 1.8-7.7 05/21/2016 4:48pm 2016 4:52pm Absolute Lymphocytes (auto) 2.0 T/MM3 1-4.8 05/21/2016 4:48pm 2016 4:52pm Absolute Monocytes (auto) 0.5 T/MM3 0-0.8 05/21/2016 4:48pm 05/21/2016 4:52pm Absolute Eosinophils (auto) 0.1 T/MM3 0-0.5 05/21/2016 4:48pm 2016 4:52pm Absolute Basophils (auto) 0.0 T/MM3 0-0.2 05/21/2016 4:48pm 05/21/2016 4:52pm Absolute Immature Granulocyte (auto 0.00 T/MM3 0.00-0.03 05/21/2016 4: 48pm 05/21/2016 4:52pm Icterus Index < 2 0-7 05/21/2016 4:48pm 05/21/2016 5:02pm Chemistry Specimen Hemolysis < 15 0-25 05/21/2016 4:48pm 05/21/2016 5 :02pm 0-25: Specimen Exhibited No Hemolysis. Turbidity < 20 0-20 05/21/2016 4:48pm 05/21/2016 5:02pm Sodium Level 140 MEQ/L 134-144 05/21/2016 4:48pm 05/21/2016 5:02pm Potassium Level 4.5 MEQ/L 3.6-5 05/21/2016 4:48pm 05/21/2016 5:02pm Chloride Level 106 MEQ/L 98-107 05/21/2016 4:48pm 05/21/2016 5:02pm Carbon Dioxide Level 27 MEQ/L 22-30 05/21/2016 4:48pm 05/21/2016 5: 02pm Anion Gap 7 MEQ/L 5-15 05/21/2016 4:48pm 05/21/2016 5:02pm Blood Urea Nitrogen 18.0 MG/DL H 7-17 05/21/2016 4:48pm 05/21/2016 5: 02pm Creatinine 1.0 MG/DL 0.7-1.2 05/21/2016 4:48pm 05/21/2016 5:02pm BUN/Creatinine Ratio 18 RATIO 6-05/21/2016 4:48pm 05/21/2016 5:02pm Glomerular Filtration Rate Calc 71 05/21/2016 4:48pm 05/21/2016 5: 02pm Glucose Level 96 MG/DL 65-110 05/21/2016 4:48pm 05/21/2016 5:02pm Calculated Osmolality 271 MOSM/KG 261-280 05/21/2016 4:48pm 05/21/2016 5:02pm Calcium Level 9.5 MG/DL 8.4-10.2 05/21/2016 4:48pm 05/21/2016 5:02pm Total Bilirubin 0.50 MG/DL 0.20-1.30 05/21/2016 4:48pm 05/21/2016 5: 02pm Alkaline Phosphatase 48 U/L 38-126 05/21/2016 4:48pm 05/21/2016 5:02pm Total Protein 6.8 G/DL 6.3-8.2 05/21/2016 4:48pm 05/21/2016 5:02pm Albumin 3.9 G/DL 3.5-5.0 05/21/2016 4:48pm 05/21/2016 5:02pm Globulin 2.9 G/DL 2.4-3.6 05/21/2016 4:48pm 05/21/2016 5:02pm Albumin/Globulin Ratio 1.3 RATIO 1.1-2.2 05/21/2016 4:48pm 05/21/2016 5 :02pm Aspartate Amino Transf (AST/SGOT) 26 U/L 14-36 05/21/2016 4:48pm 2016 5:02pm Alanine Aminotransferase (ALT/SGPT) 53 U/L H 9-52 05/21/2016 4:48pm 5:02pm Urine Collection Type CLEANCATCH-MIDSTREAM 05/21/2016 3:24pm 2016 3:38pm Urine Color YELLOW YELLOW 05/21/2016 3:24pm 05/21/2016 3:38pm Urine Turbidity CLEAR CLEAR 05/21/2016 3:24pm 05/21/2016 3:38pm Urine Specific [place] 1.015 1.015-1.025 05/21/2016 3:24pm 2016 3:38pm Urine pH 7.0 5.0-8.0 05/21/2016 3:24pm 05/21/2016 3:38pm Urine Leukocyte Esterase NEGATIVE NEGATIVE 05/21/2016 3:24pm 2016 3:38pm Urine Nitrite NEGATIVE NEGATIVE 05/21/2016 3:24pm 05/21/2016 3:38pm Urine Protein NEGATIVE NEGATIVE 05/21/2016 3:24pm 05/21/2016 3:38pm Urine Glucose (UA) NEGATIVE NEGATIVE 05/21/2016 3:24pm 05/21/2016 3: 38pm Urine Ketones NEGATIVE NEGATIVE 05/21/2016 3:24pm 05/21/2016 3:38pm Urine Urobilinogen 0.2 EU/DL NORMAL 05/21/2016 3:24pm 05/21/2016 3: 38pm Urine Bilirubin NEGATIVE NEGATIVE 05/21/2016 3:24pm 05/21/2016 3: 38pm Urine Blood NEGATIVE NEGATIVE 05/21/2016 3:24pm 05/21/2016 3:38pm Urinalysis Comment MICROSCOPIC NOT IND. 05/21/2016 3:24pm 2016 3:38pm Name: REHANA HAMILTON Unit #: [id number] : 1995 Sex: F Admit Date: Loc / Svc: ED Discharge Date: DIAGNOSTIC IMAGING REPORT Report #: [id number] [facility] SUE [place] Indication: ITS.REASON: LLQ pain PROCEDURE: KUB W/UPRIGHT: Encounter: Initial Comparison: None Findings: The visualized lung bases are clear. There is no free air on the upright view. The bowel gas pattern is nonobstructive and nonspecific. Gas is seen in nondilated small and large bowel to the level of the rectum. Moderate stool is seen throughout the colon. The bony structures are grossly unremarkable. Impression: Nonobstructive nonspecific bowel gas pattern. . Procedures No known history of procedures. Encounters Encounter Location Arrival/Admit Date Discharge/Depart Date Attending Provider Departed Emergency Room [facility] 05/21/16 2:46pm 05/21/16 6: 45pm SONYA HERNANDEZ DO Recent Diagnosis
--- OUTSIDE RECORDS SUMMARY | 2016-06-06 06:29 | XMS REPORT | Continuity of Care Document ---
Author Author [facility] Organization [facility] Address Unknown Phone Unavailable Allergies Medications Problems Procedures Results Test Result Range HEP B SURF AB (EMP) - 12/27/15 13:52 HEP B SURFACE AB (EMP) <3.1 Immunity> 9.9 VARICELLA ZOSTER IGG PRE EMP - 12/27/15 13:52 VARICELLA ZOSTER IGG PRE EMP 1186 Immune >165 Encounters ACCT No. Visit Date/Time Discharge Status Pt. Type Provider Facility Loc./Unit Complaint [id number] 05/17/2013 11:21:00 05/17/2013 23 :59:59 CLS Outpatient [id number] 05/09/2013 16:00:00 05/09/2013 23 :59:59 CLS Outpatient [id number] 04/25/2013 15:54:00 04/25/2013 23 :59:59 CLS Outpatient [id number] 04/21/2013 10:50:00 04/21/2013 23 :59:59 CLS Outpatient [id number] 04/11/2013 09:36:00 04/11/2013 23 :59:59 CLS Outpatient [id number] 03/20/2013 16:14:00 03/20/2013 23 :59:59 CLS Outpatient
--- OUTSIDE RECORDS SUMMARY | 2016-06-06 06:31 | XMS REPORT ---
Author [facility] Organization Unknown Address Unknown Phone Unavailable Care Team Providers Care Machine Design Teacher Name Role Phone PP Unavailable Reason For [...]
--- NOTE | 2016-06-06 06:36 | NUR ---
URINE SPECIMEN CLEAN CATCH URINE SPECIMEN COLLECTED, LABELED, AND WALKED TO LAB.
[2016-06-06 07:10] LABS: BLOOD, URINE 3+ (NEGATIVE); COLOR,URINE YELLOW (YELLOW); LEUKOCYTE ESTERASE ,URINE 1+ (NEGATIVE); NITRITE,URINE NEGATIVE (NEGATIVE); UROBILINOGEN,URINE 0.2 EU/DL (NORMAL)
[2016-06-06 07:29] LABS: RBC,URINE 50-200 /HPF (0-3); WBC,URINE TNTC /HPF (0-5)
[2016-06-06 07:30] LABS: BACTERIA,URINE 2+ (NEGATIVE)
--- NOTE | 2016-06-06 07:30 | NUR ---
DR. DR. HUMPHREY IN TO SEE PT.
[2016-06-06 07:31] LABS: WBC CLUMPS,URINE MODERATE
--- NOTE | 2016-06-06 07:38 | ERPDOC ---
Departure Disposition Decision Date: Jun 06, 2016 Disposition Decision Time: 07:38 Disposition: 01 DISCHARGED HOME, SELF-CARE Impression Impression Impression: Primary Impression: UTI (urinary tract infection) Severity: Moderate Condition: Improved Seen By: Physician only Referrals: MACO TEMPLE MD (Family) Patient Instructions: Urinary Tract Infection in Women (ED) Problems/Meds/Labs Reviewed?: Yes Medications reviewed and manag: Yes Additional Instructions: Cipro 500 mg 1 tablet twice daily for 10 days. Follow up care ordered?: Yes Mental Status: Alert, Oriented Scripts Ciprofloxacin HCl (Cipro) 500 Mg Tablet 500 MG PO Q12HR, #20 TAB Prov: CANDELARIO HUMPHREY MD 06/06/16 HPI - Female General Chief Complaint: Female Urogenital Problems Stated Complaint: POSS BLADDER INFECTION Time Seen by Provider: 07:33 HPI - Female Initial Comments 21-year-old female with dysuria for 2 days. Patient has extended history of bladder infections, had a bladder "scraping" and stretching of her urethra about a year ago, and this is the first she has had since that period she has no fever no chills, no upper back pain. She does have hesitancy, urgency and dysuria. She has been taking Azo for 2 days. Is Pt now?: No Hx Last Menstrual Period: UNKNOWN-DEPO Allergies: Coded Allergies: hydrocodone (Verified Allergy, Unknown, 06/06/16) prochlorperazine (Verified Allergy, Unknown, 06/06/16) promethazine (Verified Allergy, Unknown, 06/06/16) diphenhydramine (Unverified Adverse Reaction, Unknown, HALLUCINATIONS, 01/12) Past History Past Medical History GI: GERD Female: UTI, other Neurological: headaches, migraines Psychological: anxiety, depression Surgical History General: tonsils Reproductive/: other Family History Family PMH: FOUND: [place], diabetes, hypertension Vaccines Hx Influenza Vaccination: No Hx Pneumococcal Vaccination: No Social History Smoking Status: Never smoker Does patient use chewing tobac: No Second Hand Exposure: No Substance Use Type: does not use Alcohol Intake: none Sexuality: male partner Record Review Pertinent history updated: Yes Review of Systems General: see HPI All other Systems All Other Systems: Reviewed and Negative Physical Exam General General Nourishment: well nourished, well developed, appears stated age, no acute distress General Body Habitus: well groomed Vitals and Pain First Documented Vital Signs Date Time Temp Pulse Resp B/P Pulse Ox O2 Delivery O2 Flow Rate FiO2 06/06/16 06:26 97.8 88 16 121/58 99 Room Air Weight: Kilograms: 65.800 Height (feet): 5 Height (inches): 2.00 Triage Pain Scale: Normal Exams: Head: Normocephalic w/o trauma Chest/Resp: Clear all romo, with good airflow, and symmetry bilaterally CV: Regular rate and rhythm, without murmur or gallop, Pulses 2+ all extremities, capillary refill, <2 seconds all ext., no pedal edema noted Abdomen: Bowel sounds positive, non-distended, no hepatosplenomegaly, masses or bruits noted Abdomen (brief) Comments Mild tenderness right lower quadrant/pelvic. Differential Diagnoses Considering: Endometriosis, Ectopic , New Diagnosis, , Pyelonephritis, Renal Colic, UTI Progress Results/Orders Orders Procedure Category Date Status Time UA, LAB 06/06/16 Complete Dip&Micro(Complete) & 06:40 Urine Culture ROQUE 06/06/16 In Process 07:31 Lab Results Laboratory Tests Test 06/06/16 06:40 Urine Collection Type Cleancatch-midstream Urine Color Yellow Urine Turbidity Cloudy Urine pH 6.0 Urine Specific [place] >=1.030 Urine Protein Trace Urine Glucose (UA) Negative Urine Ketones Negative Urine Blood 3+ Urine Nitrite Negative Urine Bilirubin Negative Urine Urobilinogen 0.2EU/DL Urine Leukocyte Esterase 1+ Urine RBC 50-200/HPF Urine WBC Tntc/HPF Urine WBC Clumps Moderate Urine Squamous Epithelial Cells 5-10 Urine Bacteria 2+ Urine Culture Indicated Cult reflexed &setup Progress Progress UA shows obvious UTI, consistent with patient's complaints and history. She will be started on Cipro 500 mg twice daily for 10 days. She is very used Azo, can only take it for about 2 days before she gets nauseated. I did offer her a day or 2 of Percocet if needed, but she feels like she is doing fine. She will follow-up with her primary care physician. CANDELARIO HUMPHREY MD Jun 06, 2016 07:38
[2016-06-06] MEDS ORDERED: CIPR-212 PO (07:39)
--- NOTE | 2016-06-06 07:50 | NUR ---
DISMISSAL NOTE DISMISSAL INSTRUCTIONS GIVEN TO PT. AND NO FURTHER QUESTIONS. RX. FOR CIPRO GIVEN. WORK NOTE GIVEN. PT. LEFT ED AMBULATORY WITH MOTHER.
--- OUTSIDE RECORDS SUMMARY | 2016-06-06 08:00 | XMS REPORT | Continuity of Care Document ---
Author Author [facility] Organization [facility] Address Unknown Phone Unavailable Allergies Medications Problems Procedures Results Test Result Range HEP B SURF AB (EMP) - 12/27/15 13:52 HEP B SURFACE AB (EMP) <3.1 Immunity> 9.9 VARICELLA ZOSTER IGG PRE EMP - 12/27/15 13:52 VARICELLA ZOSTER IGG PRE EMP 1186 Immune >165 Encounters ACCT No. Visit Date/Time Discharge Status Pt. Type Provider Facility Loc./Unit Complaint [id number] 05/17/2013 11:21:00 05/17/2013 23 :59:59 CLS Outpatient [id number] 05/09/2013 16:00:00 05/09/2013 23 :59:59 CLS Outpatient [id number] 04/25/2013 15:54:00 04/25/2013 23 :59:59 CLS Outpatient [id number] 04/21/2013 10:50:00 04/21/2013 23 :59:59 CLS Outpatient [id number] 04/11/2013 09:36:00 04/11/2013 23 :59:59 CLS Outpatient [id number] 03/20/2013 16:14:00 03/20/2013 23 :59:59 CLS Outpatient
--- OUTSIDE RECORDS SUMMARY | 2016-06-06 08:02 | XMS REPORT ---
Author [facility] Organization Unknown Address Unknown Phone Unavailable Care Team Providers Care Cloth Shrinking Tester Name Role Phone PP Unavailable Reason For [...]
[2016-06-06 08:04] VITALS: BP 117/59; PULSE 72; RESP 20; O2SAT 98
== END 2016-06-06 07:50 | disposition home or self-care (01) ==
LOC: ED 06:25
DX: N39.0 Urinary tract infection, site not specified (principal)
CPT/HCPCS: 81001; 81025; 87086

== ENCOUNTER 2016-08-29 07:15 | Observation (INO) ==
[2016-08-29] MEDS ORDERED: SALINE FLUSH 10ml SYRINGE IVF PRN (07:20)
[2016-08-29] MEDS ORDERED: NS 1,000 ML IV ONE (07:20)
--- NOTE | 2016-08-29 07:23 | Emergency Department Report ---
Overdose HPI - General Chief Complaint: Overdose Stated Complaint: overdose Time Seen by Provider: 08/29/16 07:23 Source: patient, family, EMS, old records reviewed Mode of arrival: EMS Limitations: altered mental status - History of Present Illness HPI Narrative: Patient is a 21-year-old female presents the emergency room via EMS for possible overdose. Patient was recently prescribed Flexeril for low back pain, one tab 3 times a day which she has been taking since Sunday. Last night 11 PM patient went to bed "normal", this morning mother found patient with open pill bottle, 2 empty beer cans patient appeared to be very confused and altered EMS was called. Patient states that she took 5 pills to "make the pain go away". Patient does have some confusion and altered mentation, at times answers questions appropriately, however believe she is currently at [facility]. Mother says patient has had increased stressors recently, has been arguing with her boyfriend. Patient arrives tachycardic in the 140s, no complaints at this time. MD complaint: other (undetermined) Intent: other (patient is altered, not answering questions appropriately) Context: Accidental Overdose: uncertain what happened - Related Data Home Medications Medication Instructions Recorded Confirmed Citalopram Hydrobromide 30 mg PO DAILY #0 01/11/15 08/29/16 [Citalopram HBr] Atenolol 50 mg PO DAILY #0 11/27/15 08/29/16 Amoxicillin 500 mg PO TID #0 05/21/16 08/29/16 Buspirone HCl 15 mg PO TID #0 05/21/16 08/29/16 Norgestimate-Ethinyl Estradiol 1 tab PO DAILY #0 05/21/16 08/29/16 [Tri-Sprintec Tablet] Ondansetron HCl 8 mg PO Q6H PRN #0 05/21/16 08/29/16 Cyclobenzaprine HCl 10 mg PO TID 08/29/16 08/29/16 [Cyclobenzaprine HCl] Tramadol [Ultram] 50 mg PO DAILY 08/29/16 08/29/16 Allergies Allergy/AdvReac Type Severity Reaction Status Date / Time hydrocodone Allergy Unknown Verified 08/29/16 08:33 prochlorperazine Allergy Unknown Verified 08/29/16 08:33 promethazine Allergy Unknown Verified 08/29/16 08:33 Penicillins Allergy Verified 08/29/16 08:33 diphenhydramine AdvReac Unknown HALLUCINATI Verified 08/29/16 08:33 ONS Review of Systems Limitations: ROS unobtainable due to patient's medical condition PFSH Patient Stated Medical History Migraine Yes Depression Yes Medical History Updates: Depression. Anxiety. Back pain - Social History Smoking status: Never smoker Substance use type: does not use Alcohol intake frequency: a few times a month Physical Exam - Limitations Limitations: altered mental status - General General appearance: alert, in no apparent distress - Eye Eye exam: Present: PERRL, EOMI - ENT ENT exam: Present: normal oropharynx, mucous membranes moist - Neck Neck exam: Present: normal inspection, full ROM - Chest Chest inspection: Present: normal inspection, symmetric chest wall rise. Absent : tenderness - Respiratory Respiratory exam: Present: normal lung sounds bilaterally. Absent: respiratory distress, wheezes, stridor - Cardiovascular Cardiovascular exam: Present: normal rhythm, tachycardia, normal heart sounds. Absent: regular rate - Abdominal Exam Abdominal exam: Present: soft. Absent: distention, tenderness - Rectal Exam Rectal exam: Present: deferred - Extremities Exam Extremities exam: Present: full ROM, normal capillary refill. Absent: tenderness - Back Exam Back exam: Present: full ROM. Absent: tenderness, CVA tenderness (R), CVA tenderness (L) - Skin Skin exam: Present: warm, dry - Neurological Exam Neurological exam: Present: alert, oriented X3 - Psychiatric Psychiatric exam: Present: normal affect, normal mood Course Vital Signs Temperature 98.4 F 08/29/16 07:22 Pulse Rate 157 H 08/29/16 07:22 Respiratory Rate 15 08/29/16 07:22 Blood Pressure 138/65 08/29/16 07:22 Pulse Oximetry 99 08/29/16 07:22 Temperature 98.4 F 08/29/16 07:22 Pulse Rate 134 H 08/29/16 08:30 Respiratory Rate 34 H 08/29/16 08:30 Blood Pressure 124/68 08/29/16 08:30 Pulse Oximetry 100 08/29/16 08:15 Overdose - MDM Narrative Medical decision making narrative: Laboratories would be consistent with a cyclobenzaprine overdose, discussed case with Dr. Gonzalez, altered mental status most likely due to Flexeril, we will defer head CT at this time. Dr. Jones will admit to the CCU. - Differential Diagnosis Likely: drug overdose, accidental drug ingestion - Medical Records Attestation: I reviewed the patient's medical records. - Lab Data Attestation: I reviewed the patient's lab results. Result diagrams: 08/29/16 07:31 08/29/16 07:31 Lab Results 08/29/16 08/29/16 08/29/16 Range/Units 07:31 07:31 08:26 WBC 8.7 (4.5-11.0) T/MM3 RBC 4.95 (4.00-5.20) M/MM3 Hgb 14.8 (12-16) GM/DL Hct 42.3 (36-46) % MCV 85.5 (80-100) UM3 MCH 29.9 (26-34) UUG MCHC 35.0 (31-37) GM/DL RDW Std Deviation 37.9 (36.9-50.2) FL Plt Count 267 (130-400) T/MM3 MPV 10.5 (9.4-12.4) UM3 Immature Gran % (Auto) 0.0 (0.0-0.5) % Neut % (Auto) 82.5 H (33-66) % Lymph % (Auto) 13.8 L (23-45) % Chambers % (Auto) 3.5 (0-9.0) % Eos % (Auto) 0.0 (0-4) % Baso % (Auto) 0.2 (0-2) % Neut # 7.1 (1.8-7.7) T/MM3 Lymph # 1.2 (1-4.8) T/MM3 Chambers # 0.3 (0-0.8) T/MM3 Eos # 0.0 (0-0.5) T/MM3 Baso # 0.0 (0-0.2) T/MM3 Abs Immat Gran (auto) 0.00 (0.00-0.03) T/MM3 Turbidity < 20 (0-20) Sodium 144 (134-144) MEQ/L Potassium 3.6 (3.6-5) MEQ/L Chloride 110 H (98-107) MEQ/L Carbon Dioxide 20 L (22-30) MEQ/L Anion Gap 14 (5-15) MEQ/L BUN 12.0 (7-17) MG/DL Creatinine 0.9 (0.7-1.2) MG/DL GFR Calculation 80 BUN/Creatinine Ratio 13 (6-26) RATIO Glucose 107 (65-110) MG/DL Calculated Osmolality 277 (261-280) MOSM/KG Calcium 9.8 (8.4-10.2) MG/DL Total Bilirubin 0.50 (0.20-1.30) MG/DL Icterus Index < 2 (0-7) AST 37 H (14-36) U/L ALT 79 H (9-52) U/L Alkaline Phosphatase 49 (38-126) U/L Total Protein 7.9 (6.3-8.2) G/DL Albumin 4.9 (3.5-5.0) G/DL Globulin 3.0 (2.4-3.6) G/DL Albumin/Globulin Ratio 1.6 (1.1-2.2) RATIO Specimen Hemolysis < 15 (0-25) Ur Collection Type Urine Color (YELLOW) Urine Clarity Urine pH (5.0-8.0) Ur Specific Helen (1.015-1.025) Urine Protein (NEGATIVE) Urine Glucose (UA) (NEGATIVE) Urine Ketones (NEGATIVE) Urine Occult Blood (NEGATIVE) Urine Nitrate (NEGATIVE) Urine Bilirubin (NEGATIVE) Urine Urobilinogen (NORMAL) EU/DL Ur Leukocyte Esterase (NEGATIVE) Urine RBC (0-3) /HPF Urine WBC (0-5) /HPF Ur Squamous Epith Cells Urine Bacteria (NEGATIVE) Urine Mucus Ur Culture Indicated? Urine Test Negative (Negative) Salicylates < 1.0 L (2-20) MG/DL Urine Opiates Screen ng/mL Ur Oxycodone Screen ng/mL Urine Methadone Screen ng/mL Ur Propoxyphene Screen ng/mL Acetaminophen < 10 L (10-30) UG/ML Ur Barbiturates Screen ng/mL U Tricyclic Antidepress ng/mL Ur Phencyclidine Scrn ng/mL Ur Amphetamines Screen ng/mL U Methamphetamines Scrn ng/mL U Benzodiazepines Scrn ng/mL Urine Cocaine Screen ng/mL U Cannabinoids Screen ng/mL Alcohol, Quantitative <10 (<10) MG/DL 08/29/16 08/29/16 Range/Units 08:27 08:27 WBC (4.5-11.0) T/MM3 RBC (4.00-5.20) M/MM3 Hgb (12-16) GM/DL Hct (36-46) % MCV (80-100) UM3 MCH (26-34) UUG MCHC (31-37) GM/DL RDW Std Deviation (36.9-50.2) FL Plt Count (130-400) T/MM3 MPV (9.4-12.4) UM3 Immature Gran % (Auto) (0.0-0.5) % Neut % (Auto) (33-66) % Lymph % (Auto) (23-45) % Chambers % (Auto) (0-9.0) % Eos % (Auto) (0-4) % Baso % (Auto) (0-2) % Neut # (1.8-7.7) T/MM3 Lymph # (1-4.8) T/MM3 Chambers # (0-0.8) T/MM3 Eos # (0-0.5) T/MM3 Baso # (0-0.2) T/MM3 Abs Immat Gran (auto) (0.00-0.03) T/MM3 Turbidity (0-20) Sodium (134-144) MEQ/L Potassium (3.6-5) MEQ/L Chloride (98-107) MEQ/L Carbon Dioxide (22-30) MEQ/L Anion Gap (5-15) MEQ/L BUN (7-17) MG/DL Creatinine (0.7-1.2) MG/DL GFR Calculation BUN/Creatinine Ratio (6-26) RATIO Glucose (65-110) MG/DL Calculated Osmolality (261-280) MOSM/KG Calcium (8.4-10.2) MG/DL Total Bilirubin (0.20-1.30) MG/DL Icterus Index (0-7) AST (14-36) U/L ALT (9-52) U/L Alkaline Phosphatase (38-126) U/L Total Protein (6.3-8.2) G/DL Albumin (3.5-5.0) G/DL Globulin (2.4-3.6) G/DL Albumin/Globulin Ratio (1.1-2.2) RATIO Specimen Hemolysis (0-25) Ur Collection Type Urine, clean catch Urine Color Yellow (YELLOW) Urine Clarity Clear Urine pH 5.5 (5.0-8.0) Ur Specific Helen 1.025 (1.015-1.025) Urine Protein Trace A (NEGATIVE) Urine Glucose (UA) Negative (NEGATIVE) Urine Ketones Negative (NEGATIVE) Urine Occult Blood 1+ A (NEGATIVE) Urine Nitrate Negative (NEGATIVE) Urine Bilirubin Negative (NEGATIVE) Urine Urobilinogen 0.2 (NORMAL) EU/DL Ur Leukocyte Esterase Negative (NEGATIVE) Urine RBC 3-5 H (0-3) /HPF Urine WBC 0-1 (0-5) /HPF Ur Squamous Epith Cells 10-20 Urine Bacteria 2+ H (NEGATIVE) Urine Mucus Present Ur Culture Indicated? Cult not indicated Urine Test (Negative) Salicylates (2-20) MG/DL Urine Opiates Screen Negative ng/mL Ur Oxycodone Screen Negative ng/mL Urine Methadone Screen Negative ng/mL Ur Propoxyphene Screen Negative ng/mL Acetaminophen (10-30) UG/ML Ur Barbiturates Screen Negative ng/mL U Tricyclic Antidepress Positive ng/mL Ur Phencyclidine Scrn Negative ng/mL Ur Amphetamines Screen Negative ng/mL U Methamphetamines Scrn Negative ng/mL U Benzodiazepines Scrn Negative ng/mL Urine Cocaine Screen Negative ng/mL U Cannabinoids Screen Negative ng/mL Alcohol, Quantitative (<10) MG/DL Critical Care Time Critical Care Time: Yes Total Critical Care Time: 32 Attestation: The high probability of a clinically significant, sudden or life threatening deterioration requiring my full and direct attention, intervention and personal management. The aggregate critical care time was 32 minutes. This time is in addition to time spent performing reported procedures but includes the following : [X] Data Review and interpretation [X] Patient assessment and monitoring of vital signs [X] Documentation [X] Medication orders and management X Discussion with physicians and family Disposition Clinical Impression: Overdose Qualifiers: Encounter type: initial encounter Injury intent: undetermined intent Qualified Code(s): T50.904A - Poisoning by unspecified drugs, medicaments and biological substances, undetermined, initial encounter [place]position: 02 [place] [facility] [place] Condition: Stable Prescriptions: No Action Atenolol 50 mg PO DAILY #0 Amoxicillin 500 mg PO TID #0 Norgestimate-Ethinyl Estradiol [Tri-Sprintec Tablet] 1 tab PO DAILY #0 Buspirone HCl 15 mg PO TID #0 Cyclobenzaprine HCl [Cyclobenzaprine HCl] 10 mg PO TID Tramadol [Ultram] 50 mg PO DAILY Citalopram Hydrobromide [Citalopram HBr] 30 mg PO DAILY #0 Ondansetron HCl 8 mg PO Q6H PRN #0 PRN Reason: NAUSEA &/OR VOMITING Referrals: Sebastian Otto MD [Family Provider] - Time of Disposition: 08:51 - Seen By: physician
[2016-08-29] MEDS ORDERED: TRAMADOL 50 MG PO ONE (09:15)
[2016-08-29 11:01] VITALS: BMI 25.5
--- NOTE | 2016-08-29 12:10 | History & Physical Report ---
<Earline Mayorga - Last Filed: 08/29/16 11:41> History of Present Illness Date: 08/29/16 Chief complaint: intentional drug overdose HPI: Shila Gibson is a 21-year-old female who presented to [facility] ED via EMS for evaluation of altered mental status. According to ED documentation, she went to bed "normal" last night around 11 pm and was found this morning by her mother and appeared to be very confused with altered mental status. Her mother reportedly found the patient with an open pill bottle which contained Flexeril, 2 empty cans of beer and a bottle of benadryl by the bed. After a very lengthy conversation, she tearfully admitted that she was fighting with her boyfriend last night because of his reported narcotic abuse and just "wanted to ". She admits to taking 5 flexeril pills and "some sleeping pills" last night around midnight with the intent to "". Count of the flexeril pills in the ED , based on the dosing instructions of 1 tab po TID since 08/25/16 when she was prescribed the medication, confirms the count. She is unsure how many " sleeping pills" she took and only admits to drinking 1 beer. She underwent initial evaluation in the ED including labs which were relatively unremarkable. Of note were slightly elevated LFT with AST 37 and ALT 79. UDS was positive for tricyclic antidepressants which is consistent with her history of flexeril ingestion. UA was contaminated with 0-1 WBC, 10-20 squamous epitheal cells and 2+ bacteria. UCG was negative and she reports her LMP was >5 years ago, stating that she was previously on the depo shot and changed to oral contraception in April 2012. EKG showed tachycardia. Due to her intentional drug overdose with altered mental status, Dr. Gonzalez was contacted and she was admitted for observation to the ICU. She is seen and evaluated without family present upon her arrival to the ICU. During the conversation in room 4 in ICU, she displays constant defensiveness with some agitation. She begins crying, saying that she "just wants to go home " and cries out "why am I the one always being punished for everything?". During the discussion, she opens up about how she has been "very stressed" recently because she just found out her boyfriend cheated on her multiple times with one of her friends over a year ago and then discusses how her parents are but she feels stuck in the middle of their "issues". She admits to a personal history of severe anxiety and depression with a significant family history of depression and anxiety with her sister who has tried to commit suicide through drug over dose multiple times. She admits to suicidal ideation with a current plan of intentional drug overdose and exhibits behaviors consistent with hopelessness and depression. She denies any physical complaints including no fevers, chills, chest pain, shortness of breath, palpitations, abdominal pain, nausea, vomiting, dysuria or back pain. Review of Systems ROS unobtainable: due to mental status - Constitutional Constitutional: Absent: chills, fever(s) - EENMT Eyes: Absent: blurry vision, diplopia, loss of vision, photophobia Nose: Absent: nosebleeds Mouth/Throat: Present: dry mouth. Absent: changes in swallowing - Cardiovascular Cardiovascular: Absent: chest pain, palpitations, syncope, dyspnea on exertion, edema Rhythm: Present: regular rhythm Vascular: Absent: pedal edema, unilateral swelling - Respiratory Respiratory: Absent: cough, dyspnea, pain on inspiration - Gastrointestinal Gastrointestinal: Present: constipation. Absent: abdominal pain, diarrhea, nausea, vomiting - Genitourinary Genitourinary: Absent: dysuria, flank pain Menstruation: amenorrhea on BC - Musculoskeletal Musculoskeletal: Present: back pain (upper/shoulders). Absent: deformity, stiffness - Integumentary/Breasts Integumentary: Absent: lesions, rash, jaundice - Neurological Neurological: Present: confusion. Absent: convulsions, dizziness, paresthesias - Psychiatric Psychiatric: Present: anxiety, depression, hopelessness, mood swings, other ( "anger issues") - Endocrine Endocrine: Absent: palpitations, polyuria - Hematologic/Lymphatic Hematologic/Lymphatic: Absent: easy bruising - Allergic/Immunologic Allergic/Immunologic: Absent: itchy eyes, seasonal rhinorrhea [facility] Medical History Updates: Depression. Anxiety. Back pain. GERD. Urethral stenosis. Frequent UTIs. Constipation. Migraines. Surgical History: Tonsillectomy. Cystoscopy with urethral dilation. Family History Updates: Significant for anxiety and depression. Step-sister - anxiety, depression, multiple drug overdose attempts. Aunt - depression, anxiety. - Social History Smoking status: Never smoker Substance use type: does not use Alcohol intake frequency: a few times a month Last drink: hours (ago) (12 hours) Housing: house Household members: significant other, family Current occupational status: employed ([employer]) Does patient use chewing tobacco?: No Current residence: Apartment/Private Home Social history: PCP - Dr. Sebastian Otto. Behavioral - [facility] Mcqueen. Medications Home Medications Medication Instructions Recorded Confirmed Type Citalopram Hydrobromide 30 mg PO DAILY #0 01/11/15 08/29/16 History [Citalopram HBr] Atenolol 50 mg PO DAILY #0 11/27/15 08/29/16 History Amoxicillin 500 mg PO TID #0 05/21/16 08/29/16 History Buspirone HCl 15 mg PO TID #0 05/21/16 08/29/16 History Norgestimate-Ethinyl Estradiol 1 tab PO DAILY #0 05/21/16 08/29/16 History [Tri-Sprintec Tablet] Ondansetron HCl 8 mg PO Q6H PRN #0 05/21/16 08/29/16 History Cyclobenzaprine HCl 10 mg PO TID 08/29/16 08/29/16 History [Cyclobenzaprine HCl] Tramadol [Ultram] 50 mg PO DAILY 08/29/16 08/29/16 History Allergies Allergy/AdvReac Type Severity Reaction Status Date / Time hydrocodone Allergy Unknown Verified 08/29/16 08:33 prochlorperazine Allergy Unknown Verified 08/29/16 08:33 promethazine Allergy Unknown Verified 08/29/16 08:33 Penicillins Allergy Verified 08/29/16 08:33 diphenhydramine AdvReac Unknown HALLUCINATI Verified 08/29/16 08:33 ONS Exam Vital Signs: Temperature 98.4 F 08/29/16 10:15 Pulse Rate 125 H 08/29/16 10:45 Respiratory Rate 31 H 08/29/16 10:45 Blood Pressure 136/64 08/29/16 10:45 Pulse Oximetry 100 08/29/16 10:45 Oxygen Delivery Method Room Air Telemetry Rhythm: Sinus Tachycardia Height: 5 ft 2 in Weight: 139 lb 8.842 oz Body Mass Index: 25.5 - Constitutional Present: well nourished, well developed, cooperative, agitated Comments: tearful - Routine HEENT Exam Head: Present: normocephalic, atraumatic. Absent: laceration, hematoma Eye: Present: PERRL, nystagmus. Absent: conjunctival icterus, scleral injection ENT: Present: mucous membranes dry, dentition normal - Routine Neck Exam Present: supple, full ROM, trachea midline. Absent: meningismus - Routine Chest/Breast/Axilla Exam Chest wall: Absent: tenderness, pacemaker - Routine Respiratory Exam Present: CTA bilaterally. Absent: accessory muscle use, rales, stridor, wheezes , crackles Comments: tachypnea - Routine Cardiovascular Exam Present: RRR, S1, S2, no murmur, tachycardia - Routine Abdominal Exam Present: soft, normoactive bowel sounds, non distended, non tender. Absent: rebound - Routine Extremities Exam Present: no edema, non tender, full ROM, pulses intact. Absent: cyanosis - Routine Back/Spine/Pelvis Exam Back/Spine: Present: full ROM. Absent: CVA tenderness, vertebral tenderness - Routine Skin Exam Present: intact, dry, warm. Absent: jaundice - Routine Neurological Exam Present: alert, altered mental status, moving all extremities, nystagmus, hearing grossly intact. Absent: oriented X3, facial asymmetry limited exam as patient refused to participate. Answered most questions appropriately but then would ask or state unrelated questions or comments (ie. how long do I have to use that toothpaste? I don't know how old the baseball team is.) - Routine Psychiatric Exam Present: suicidal ideation (with plan), agitated. Absent: normal thought process - Detailed Psychiatric Exam Mood and affect: Present: tearful Results - Labs CBC & Chem 7: 08/29/16 07:31 08/29/16 07:31 Assessment and Plan (1) Intentional overdose of drug in tablet form Current visit: Yes Status: Acute (2) Anxiety and depression Current visit: Yes Status: Chronic (3) Back pain Current visit: Yes Status: Chronic (4) GERD (gastroesophageal reflux disease) Current visit: Yes Status: Chronic (5) Urethral stenosis Current visit: Yes Status: Chronic (6) Constipation Current visit: Yes Status: Chronic (7) History of migraine headaches Current visit: Yes Status: Chronic (8) Suicidal behavior with attempted self-injury Current visit: Yes Status: Acute DVT Prophylaxis: SCD's Assessment and Plan: 08/29/16. -Suicidal behavior with attempted self injury and intentional drug overdose. .Intentional overdose on Flexeril x 5 tabs and unknown amount of Benadryl around midnight on the night of 08/28/16. .Admit to observation status under the care of Dr. Gonzalez. .Consult psychiatry for psychiatric evaluation and treatment recommendations. .Monitor cardiac function closely on telemetry as flexeril overdose can cause QRS prolongation. Current rhythm shows tachycardia. .Monitor neurologic function closely as patient continues to display altered mental status and has risk for seizures secondary to overdose. .Suicide precautions. Would encourage limiting visitors to family only. .Labs on admission showed slightly elevated LFT. Recheck labs in AM to monitor blood counts, electrolytes, liver and renal function. Flexeril is metabolised through the liver. Avoid tylenol. .SCDs for DVT prophylaxis. .May consider changing to inpatient status as half-life of flexeril is around 12-18 hours with peak effects at 96 hours. .Patient may require inpatient psychiatric treatment in light of SI with detailed plan. -Anxiety and depression, chronic. .Continue home medications including Buspar and Celexa. -Back pain, chronic. .Recommend avoiding flexeril and narcotic medications in light of recent overdose. .Ibuprofen as needed for pain. -Urethral stricture with history of frequent UTIs. .UA on admission appeared contaminated. Patient denies any current urinary symptoms or dysuria. .In light of history of stricture, monitor closely for signs of urinary retention with recent overdose. -Constipation, chronic. .Colace daily as needed in. -History of migraines, chronic. Sepsis Assessment - Evaluation Sepsis screening result: No Definite Risk Hospital Course Summary Disclaimer: The visit summary below is not to be considered part of the above Progress Note. Hospital Course: 08/29/16 12:48 08/29/16. -Suicidal behavior with attempted self injury and intentional drug overdose. .Intentional overdose on Flexeril x 5 tabs and unknown amount of Benadryl around midnight on the night of 08/28/16. .Admit to observation status under the care of Dr. Gonzalez. .Consult psychiatry for psychiatric evaluation and treatment recommendations. .Monitor cardiac function closely on telemetry as flexeril overdose can cause QRS prolongation. Current rhythm shows tachycardia. .Monitor neurologic function closely as patient continues to display altered mental status and has risk for seizures secondary to overdose. .Suicide precautions. Would encourage limiting visitors to family only. .Labs on admission showed slightly elevated LFT. Recheck labs in AM to monitor blood counts, electrolytes, liver and renal function. Flexeril is metabolised through the liver. Avoid tylenol. .SCDs for DVT prophylaxis. .May consider changing to inpatient status as half-life of flexeril is around 12-18 hours with peak effects at 96 hours. .Patient may require inpatient psychiatric treatment in light of SI with detailed plan. -Anxiety and depression, chronic. .Continue home medications including Buspar and Celexa. -Back pain, chronic. .Recommend avoiding flexeril and narcotic medications in light of recent overdose. .Ibuprofen as needed for pain. -Urethral stricture with history of frequent UTIs. .UA on admission appeared contaminated. Patient denies any current urinary symptoms or dysuria. .In light of history of stricture, monitor closely for signs of urinary retention with recent overdose. -Constipation, chronic. .Colace daily as needed in. -History of migraines, chronic. Upon discharge, patient's care will be returned to her PCP, Dr. Otto. <Geno Gonzalez - Last Filed: 08/29/16 14:36> History of Present Illness Date: 08/29/16 [facility] Patient Stated Medical History Migraine Yes Chlamydia Yes Depression Yes Exam Vital Signs: Temperature 98.0 F 08/29/16 13:00 Pulse Rate 95 08/29/16 13:00 Respiratory Rate 25 H 08/29/16 13:00 Blood Pressure 122/65 08/29/16 13:00 Pulse Oximetry 99 08/29/16 13:00 Oxygen Delivery Method Room Air Height: 1.57 m Weight: 63.3 kg Results - Labs CBC & Chem 7: 08/29/16 07:31 08/29/16 07:31 Assessment and Plan (1) Suicidal behavior with attempted self-injury Current visit: Yes Status: Acute (2) Intentional overdose of drug in tablet form Current visit: Yes Status: Acute (3) Transaminitis Current visit: Yes Status: Acute (4) Anxiety and depression Current visit: Yes Status: Chronic (5) Back pain Current visit: Yes Status: Chronic (6) GERD (gastroesophageal reflux disease) Current visit: Yes Status: Chronic (7) Urethral stenosis Current visit: Yes Status: Chronic (8) Constipation Current visit: Yes Status: Chronic (9) History of migraine headaches Current visit: Yes Status: Chronic Assessment and Plan: I have independently evaluated and examined this patient. I reviewed the chart, the patient's history, and the PA's documented findings as above. We discussed and formulated the assessment and plan as above with additions as below: Patient's mother is at bedside and provides much of the history. Shila reports taking 5 tablets of Flexeril, 1-2 beers (2 empty beer cans done in the trash by police), and undefined number of Benadryl tablets (more than 5 but less than 15 ) early this morning with the intent of ending her life. She indicates that she is stressed but was vague as to stressors when I spoke with her. Her mother found the patient to proximally 6:30 citing "mothers intuition"at which time the patient was lethargic and couldn't speak coherently. There was evidence of recent vomiting. Police were summoned and patient transferred to the emergency room. Patient's mother reports that she is subsequently learned the patient was texting friends in the [place] and believes medication ingestion occurred around 2:30 AM based on texts friends received. Patient does not recall timing of events. Patient's mother describes the patient as being very emotional and dramatic reports that she's had no prior suicidal gestures or threats. Patient has no past history of psychiatric hospitalizations although is being treated for anxiety/depression. She has no history of anorexia or bulimic behaviors as a teenager or young adult and patient and mother deny other psychiatric symptoms. When interviewed the patient denied that she would repeat threatening behavior or harm herself again but could not identify anything that had changed that would alter her behavior when she was stressed in the future. She complained of palpitations and minor nausea when seen. Examination reveals the patient to be calm and cooperative although she avoids direct eye contact and is often evasive in answering questions. There were no random statements or incoherent comments made during my interview with the patient. Gaze is conjugate, EOMI, no nystagmus Sensation intact 4 extremities, motor tone normal, no tremor Respirations nonlabored and breath sounds clear. Cardiac rhythm regular with low-grade tachycardia, S1-S2. EKG reviewed by myself demonstrates left axis deviation, LAFB, poor R-wave progression (questionable lead placement) and subtle ST depression in the lateral leads precordially. Poor R-wave progression was not present on a 12- lead EKG obtained at the clinic in November 2015. Left axis deviation is unchanged from the past. Laboratory data notable only for minor elevations in transaminases and presence of tricyclics on urine drug screen. Patient was admitted with overdose/suicide attempt. Patient clearly has poor coping techniques and remains at high risk for self injury. Psychiatry consult requested-case discussed briefly with Dr. Allen. Underlying chronic pain syndrome with multiple office visits and ER visits (11 office visits since February 26 and approximated dozen ER visits in the past year) . Shift in EKG precordial wave forms-doubt cardiac event is the cause, screen troponin on initial blood work and repeat EKG. Continue home medications pending psychiatric recommendations. Outpatient records reviewed, current and prior EKG reviewed by myself, laboratory data reviewed, supplemental history provided by mother, discussed with Dr. Bliss and Dr. Allen. Hospital Course Summary Disclaimer: The visit summary below is not to be considered part of the above Progress Note.
[2016-08-29] MEDS ORDERED: IBUPROFEN 600 MG TABLET PO PRN (12:35)
[2016-08-29] MEDS ORDERED: NORGESTIMATE ETHINYL ESTRADIOL PO SCH (12:45)
[2016-08-29] MEDS: NS 1,000 ML IV SCH (13:56)
[2016-08-29] MEDS: BUSPIRONE 15 MG TABLET PO SCH ×2 (14:26→20:24)
[2016-08-29] MEDS ORDERED: CITALOPRAM 10 MG TABLET PO SCH ×2 (14:31→15:22)
--- NOTE | 2016-08-29 14:48 | Neuropsychiatric Consult ---
[facility] Date: 08/29/16 Requesting Physician: Geno Gonzalez Reason for Consultation: Suicide attempt by overdose on medications Start Time: 14:00 Stop Time: 14:30 History of Present Illness: Patient is a 21-year-old single, female who was admitted to the hospital post suicide attempt by overdose on Flexeril and some sleep medications (possibly benadryl). This was a deliberate suicide attempt and she reportedly drank some alcohol prior to the overdose. The stressor was a fight with her boyfriend of 3 years and she also reports some financial stress at home, due to her mother not being able to work. 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 Patient reports history of depressive symptoms since the last 3 years and endorses low energy, loss of appetite, impaired concentration, recurrent morbid thoughts and low motivations. She was said to have been started on Celexa which was titrated to 40mg daily, but she tried to cut back and had a relapse of depressive symptoms. Patient feels like the current episode may have coincide with a change in her contraceptive. Patient also endorses anxiety feeling around crowded area and has intermittent panic attack with perspiration, hyperventilation, palpation and tremor. The episodes of panic attack often lasts for 5 to 10 minutes. She denies any symptom suggestive of manic or hypomanic symptoms and denies any auditory or visual hallucination. Patient continues to be ambivalent about the suicide attempt and reports that she sometime wished it could succeeded. Reviewed patient's lab which showed elevated AST/ALT and the UDS was positive for TCA possibly due to Flexeril Depression: Increased Anxiety, Increased Irritability, Crying Spells, Loss of Interest in Activities, Increased Fatigue, Loss of Energy, Insomnia, Feelings of Guilt, Recurrent Thoughts of or Suicide, Difficulty Concentrating, Changes in Appetite Anxiety: Palpitations, Extremity Numbness/Tingling, Perioral Numbness/Tingling [facility] Patient Stated Medical History Migraine Yes Chlamydia Yes Depression Yes Medical History Updates: Depression. Anxiety. Back pain. GERD. Urethral stenosis. Frequent UTIs. Constipation. Migraines. Surgical History: Tonsillectomy. Cystoscopy with urethral dilation. Family History: Patient reports hx of depression in 2 sisters, her aunt and There is hx BAD in her aunt according to patient. - Social History Smoking status: Never smoker Alcohol intake frequency: a few times a month service: No Current occupational status: employed ([employer]) Does patient use chewing tobacco?: No Current residence: Apartment/Private Home Review of Systems - Constitutional Constitutional: Absent: chills, fever(s) - EENMT Eyes: Absent: blurry vision, diplopia, loss of vision, photophobia Nose: Absent: nosebleeds Mouth/Throat: Present: dry mouth. Absent: changes in swallowing - Cardiovascular Cardiovascular: Absent: chest pain, palpitations, syncope, dyspnea on exertion, edema Rhythm: Present: regular rhythm Vascular: Absent: pedal edema, unilateral swelling - Respiratory Respiratory: Absent: cough, dyspnea, pain on inspiration - Gastrointestinal Gastrointestinal: Present: constipation. Absent: abdominal pain, diarrhea, nausea, vomiting - Genitourinary Genitourinary: Absent: dysuria, flank pain Menstruation: amenorrhea on BC - Musculoskeletal Musculoskeletal: Present: back pain (upper/shoulders). Absent: deformity, stiffness - Integumentary/Breasts Integumentary: Absent: lesions, rash, jaundice - Neurological Neurological: Present: confusion. Absent: convulsions, dizziness, paresthesias - Psychiatric Psychiatric: Present: anxiety, depression, hopelessness, mood swings, other ( "anger issues") - Endocrine Endocrine: Absent: palpitations, polyuria - Hematologic/Lymphatic Hematologic/Lymphatic: Absent: easy bruising - Allergic/Immunologic Allergic/Immunologic: Absent: itchy eyes, seasonal rhinorrhea Mental Status Exam Vitals: Last Vital Signs Temp 98.0 F 08/29/16 13:00 Pulse 95 08/29/16 13:00 Resp 25 H 08/29/16 13:00 BP 122/65 08/29/16 13:00 Pulse Ox 99 08/29/16 13:00 Height: 1.57 m Weight: 63.3 kg - Mental Status Exam Muscle Strength/Tone: Weak Dressing: Other (Hosp gown) Attitude: Cooperative Eye Contact: Fair Speech: Slowed Volume: Soft Rhythm: Appropriate Rhythm Orientation: Oriented X4 Mood: Depressed, Anxious Affect: Depressed Thought Organization: Organized Associations: Intact Abstract Reasoning: Intact, able to abstract Computation: Intact Thought Content: Normal Perception/Psychotic: Perception Normal Language: Naming Intact Fund of Knowledge: Appropriate Memory: Grossly Intact Suicidal Ideation: Persistent Homicidal Ideation: None Insight: Fair Judgement: Poor Impulse Control: Poor - Laboratory Result Diagrams: 08/29/16 07:31 08/29/16 07:31 Assessment and Plan 1. Major Depressive disorder recurrent severe 2.Suicide attempt by overdose. 3. r/o Unspecified anxiety disorder Recommendations. 1. Patient to be kept in the ICU under level 2 suicide precautions. She should be within eye sight all the time. 2. Patient will benefit from further stabilization at an inpatient psychiatric hospital when medically stable. 3. She should not leave AMA and she attempts to leave AMA please take out a court hold. 4. Thank you for allowing us to participate in the care of this patient and do not hesitate to call us if you have any further question.
[2016-08-29] MEDS ORDERED: CITALOPRAM 10 MG TABLET PO ONE (15:25)
[2016-08-29] MEDS ORDERED: ARTIFICIAL TEARS 15ml EACH EYE PRN (20:53)
[2016-08-30] MEDS: NS 1,000 ML IV SCH (00:08)
[2016-08-30] MEDS: BUSPIRONE 15 MG TABLET PO SCH (08:49)
[2016-08-30] MEDS ORDERED: DOCUSATE SODIUM 100 MG CAPSULE PO SCH (09:00)
[2016-08-30] MEDS ORDERED: CITALOPRAM 10 MG TABLET PO SCH (09:00)
[2016-08-30] MEDS ORDERED: CITALOPRAM 40 MG TABLET PO SCH (09:00)
[2016-08-30 10:12] VITALS: TEMP 98.3
--- NOTE | 2016-08-30 11:53 | Discharge Instructions ---
Discharge Plan - Med Rec/Dispo Referrals/Follow Up: Sebastian Otto MD [Family Provider] - 2 Weeks Prescriptions: New Ibuprofen [Motrin] 600 mg PO Q6H PRN tablet PRN Reason: Pain Continue Atenolol 50 mg PO DAILY #0 Norgestimate-Ethinyl Estradiol [Tri-Sprintec Tablet] 1 tab PO DAILY #0 Buspirone HCl 15 mg PO TID #0 Citalopram [Celexa] 40 mg PO DAILY Ondansetron HCl 8 mg PO Q6H PRN #0 PRN Reason: NAUSEA &/OR VOMITING Discontinued Amoxicillin 500 mg PO TID #0 Cyclobenzaprine HCl [Cyclobenzaprine HCl] 10 mg PO TID Tramadol [Ultram] 50 mg PO DAILY Discharge Instructions/Outpatient Orders: Final Provider Discharge Instructions Location: Determined By Patient - Disposition 65 To Psych Hosp/Unit
[2016-08-30 12:21] VITALS: BP 127/79; PULSE 81; RESP 30; O2SAT 90
--- NOTE | 2016-08-30 12:49 | Discharge Summary ---
Discharge Information Date of admission: 08/29/16 09:50 Anticipated date of discharge: 08/30/16 Attending Physician: Geno Gonzalez MD Primary care physician: Sebastian Otto MD Consults: Dr. Jeremy Allen - Discharge Diagnosis (1) Suicidal behavior with attempted self-injury Status: Acute (2) Intentional overdose of drug in tablet form Status: Acute (3) Transaminitis Status: Resolved (4) Anxiety and depression Status: Chronic (5) Back pain Qualifiers: Back pain location: thoracic back pain Chronicity: chronic Back pain laterality: bilateral Qualified Code(s): M54.6 - Pain in thoracic spine; G89.29 - Other chronic pain Status: Chronic (6) GERD (gastroesophageal reflux disease) Qualifiers: Esophagitis presence: without esophagitis Qualified Code(s): K21.9 - Gastro -esophageal reflux disease without esophagitis Status: Chronic (7) Urethral stenosis Status: Chronic (8) Constipation Qualifiers: Constipation type: slow transit constipation Qualified Code(s): K59.01 - Slow transit constipation Status: Chronic (9) History of migraine headaches Status: Chronic - Laboratory Labs: 08/30/16 04:50 08/30/16 04:50 AST 37, ALT 79 on admission-both normalized on 08/30. Urine drug screen positive for tricyclics; acetaminophen, salicylates, and alcohol nondetectable on admission History of Present Illness HPI: Shila Gibson is a 21-year-old female who presented to [facility] via EMS for evaluation of altered mental status. According to ED documentation, she went to bed "normal" last night around 11 pm and was found this morning by her mother and appeared to be very confused with altered mental status. Her mother reportedly found the patient with an open pill bottle which contained Flexeril, 2 empty cans of beer and a bottle of benadryl by the bed. After a very lengthy conversation, she tearfully admitted that she was fighting with her boyfriend last night because of his reported narcotic abuse and just "wanted to ". She admits to taking 5 flexeril pills and "some sleeping pills" last night around midnight with the intent to "". Count of the flexeril pills in the ED , based on the dosing instructions of 1 tab po TID since 6/30/17 when she was prescribed the medication, confirms the count. She is unsure how many " sleeping pills" she took and only admits to drinking 1 beer. She underwent initial evaluation in the ED including labs which were relatively unremarkable. Of note were slightly elevated LFT with AST 37 and ALT 79. UDS was positive for tricyclic antidepressants which is consistent with her history of flexeril ingestion. UA was contaminated with 0-1 WBC, 10-20 squamous epitheal cells and 2+ bacteria. UCG was negative and she reports her LMP was >5 years ago, stating that she was previously on the depo shot and changed to oral contraception in April 2012. EKG showed tachycardia. Due to her intentional drug overdose with altered mental status, Dr. Gonzalez was contacted and she was admitted for observation to the ICU. She is seen and evaluated without family present upon her arrival to the ICU. During the conversation in room 4 in ICU, she displays constant defensiveness with some agitation. She begins crying, saying that she "just wants to go home " and cries out "why am I the one always being punished for everything?". During the discussion, she opens up about how she has been "very stressed" recently because she just found out her boyfriend cheated on her multiple times with one of her friends over a year ago and then discusses how her parents are but she feels stuck in the middle of their "issues". She admits to a personal history of severe anxiety and depression with a significant family history of depression and anxiety with her sister who has tried to commit suicide through drug over dose multiple times. She admits to suicidal ideation with a current plan of intentional drug overdose and exhibits behaviors consistent with hopelessness and depression. She denies any physical complaints including no fevers, chills, chest pain, shortness of breath, palpitations, abdominal pain, nausea, vomiting, dysuria or back pain. Hospital Course This is a general summary of the patient's hospital course. For more details refer to the complete medical record. Hospital course: Shila was admitted to the intensive care unit following suicidal behavior with intentional overdose with Flexeril and Benadryl. She was lethargic on admission with rapid clearing of mental status. She was placed on one-on-one care and cardiac rhythm monitored. IV fluids were continued. No QT or QT as prolongation was identified although there were nonspecific ST/T-wave abnormalities on admission EKG with residual nonspecific ST segment abnormality at discharge. The patient was seen in consultation by Dr. Allen for psychiatric evaluation and further inpatient psychiatric services recommended. Arrangements were made for transfer to [facility] for further assessment on 08/30/16. The patient was reluctant to consider further inpatient care but was agreeable prior to transfer. No further medical complications develop during hospital stay and the patient was medically stable for discharge to [facility] on August 30. Prior to discharge the patient reported that her mood was much better on that she's had return of appetite. She requested that IV fluids be discontinued as she's been voiding large volumes without dysuria on the morning of discharge. She denied dyspnea or palpitations. Respirations are nonlabored and breath sounds are clear. Cardiac rhythm is regular with resolution of previously seen tachycardia. Discussed with nursing and case management in addition to parents at the bedside. Patient follow-up with Fatmata Mcqueen APRN in short time. Following discharge from [facility]. >30 minutes spent on patient care and discharge care coordination today on the date of discharge. -- Time spent with patient: Greater than 35 minutes Discharge Plan - Med Rec/Dispo Referrals/Follow Up: Sebastian Otto MD [Family Provider] - 2 Weeks Prescriptions: New Ibuprofen [Motrin] 600 mg PO Q6H PRN tablet PRN Reason: Pain Continue Atenolol 50 mg PO DAILY #0 Norgestimate-Ethinyl Estradiol [Tri-Sprintec Tablet] 1 tab PO DAILY #0 Buspirone HCl 15 mg PO TID #0 Citalopram [Celexa] 40 mg PO DAILY Ondansetron HCl 8 mg PO Q6H PRN #0 PRN Reason: NAUSEA &/OR VOMITING Discontinued Amoxicillin 500 mg PO TID #0 Cyclobenzaprine HCl [Cyclobenzaprine HCl] 10 mg PO TID Tramadol [Ultram] 50 mg PO DAILY Discharge Instructions/Outpatient Orders: Final Provider Discharge Instructions Location: Determined By Patient - Disposition 65 To Psych Hosp/Unit
== END 2016-08-30 13:07 ==
LOC: CCU 07:15 → ED 07:15 → CCU 10:00
PROVIDERS: ADMIT Internal Medicine; ATTEND Internal Medicine